=== PATIENT | male | born 1960 | race Caucasian/White ===

== ENCOUNTER → 2016-08-21 | Outpatient (CLI) | payer OTHER ==
[~2016-08-21] MED LIST: ALFU10TA11 PO; AMLO10TA82 PO; AMLO5TAB2 PO; ASP81CT; ASP81TEC PO; ASPI-875 PO; ASPI-983 PO; ATOR20TA49 PO; ATR20T PO; BP; CEPH500C PO; CLOP75TA PO; CLPD75T; HEART MED; HYDR-1231 PO; HYDR-3812 PO; HYDR-3876 PO; HYDR-757 PO; HYDR1TAB PO; ISOS30TA3 PO; ISOS30TA74 PO; LISI1TAB PO; LISI1TAB8 PO; METH4TAB PO; NAPR500T3 PO; NITR-68 PO; OMEG1CAP51 PO; ORPH100T PO; OXYC-465 PO; Oxycodone Hcl PO; PANT40SU PO; PANT40TA2 PO; PANT40TA3 PO; PNT40TEC PO; PRD20T PO; SCR1T1 PO; SUCR1TAB PO; SULF1TAB23 PO; TAMS0.4C98 PO; TELM80TA3 PO; TICA90TA PO; TRAM-21 PO; [UNRECOGNIZED DRUG - REMARK]
--- OUTSIDE RECORDS SUMMARY | 2016-08-21 09:10 | XMS REPORT | Continuity of Care Document ---
Author Author [facility] Organization [facility] Address Unknown Phone Unavailable Care Team Providers Care Brush Hand Name Role Phone JORDY JAIMES DO PCP Insurance Providers Payer Name Policy Number Subscriber Name Relationship Self Pay Pending Mery Apprv Daniel Meek Jr 18 Self / Same As Patient Advance Directives Directive Response Recorded Date/Time Advance Directives No 03/07/16 11:04pm Health Care Power of Ultrasound Technol No 03/07/16 11:04pm Organ Donor No 03/07/16 11:04pm Resuscitation Status Full Code 03/07/16 11:04pm Chief Complaint and Reason for Visit Chief Complaint CHEST PAIN, BACK PAIN Reason for Visit Ureterovesical junction (UVJ) obstruction Problems Active Problems Medical Problem Onset Date Status Chest pain Unknown Acute Dilated renal pelvis Unknown Acute Hypertension Unknown Acute Hypertensive urgency Unknown Acute Intractable abdominal pain Unknown Acute Left lower quadrant pain Unknown Acute Lower back pain Unknown Acute Lumbar radiculopathy Unknown Acute Muscle spasm of back Unknown Acute Nausea Unknown Acute Sacroiliitis Unknown Acute Sciatica of left side Unknown Acute Skin growth Unknown Acute Skin growth Unknown Acute Skin lesion Unknown Acute Ureterovesical junction (UVJ) obstruction Unknown Acute Medications Current Home Medications Medication Dose Units Route Directions Days/Qty Instructions Start Date Atorvastatin Calcium 20 Mg 20 Mg Oral Bedtime 06/13/15 Lisinopril/Hydrochlorothiazide 1 Each 1 Tab Oral Daily 06/13/15 Pantoprazole Sodium 40 Mg 40 Mg Oral Twice A Day 08/14/15 Alfuzosin Hcl 10 Mg 10 Mg Oral Daily@1800 30 08/15/15 Amlodipine Besylate 5 Mg 5 Mg Oral Bedtime 30 08/15/15 Hydrocodone/Acetaminophen 1 Each 1 Each Oral Every 4HRS as needed for Pain 30 03/08/16 Past Home Medications Medication Directions Ordered Status Clopidogrel Bisulfate 75 Mg Tablet, 09/25/07 Discontinued Aspirin 81 Mg Tablet, 09/25/07 Discontinued Sulfamethoxazole/Trimethoprim 1 Tab Tablet, 1 Tab Oral Twice A Day 09/15/11 Discontinued Acetaminophen/Hydrocodone Bitart 1 Each Tablet, 1 Each Oral Q4hr Prn Discontinued [Antacid Pill] , 10/27/12 Discontinued Aspirin 81 Mg Tablet.dr, 81 Mg Oral Daily 10/27/12 Discontinued Pantoprazole Sod 40 Mg Tab, 40 Mg Oral Twice A Day 10/29/12 Discontinued Hctz/Lisinopril (Zestoretic) 1 Each Tablet, 1 Tab Oral Daily 11/09/12 Discontinued Atorvastatin Calcium 20 Mg Tablet, 20 Mg Oral Bedtime 11/11/12 Discontinued Sucralfate 1 G Tablet, 1 G Oral Three Times A Day Before Meals 11/11/12 Discontinued Aspirin 81 Mg Tabec, 81 Mg Oral Daily 11/11/12 Discontinued Amlodipine Besylate (Norvasc 10 Mg) 10 Mg Tablet, 10 Mg Oral Daily 04/05/13 Discontinued [place]-3 Fatty Acids/Fish Oil 1 Each Capsule, 3 Each Oral Daily 04/06/13 Discontinued Clopidogrel Bisulfate 75 Mg Tablet, 1 Each Oral Daily 04/06/13 Discontinued Telmisartan 80 Mg Tablet, 1 Each Oral Daily 04/06/13 Discontinued Sucralfate 1 Gm Tab, 1 Gm Oral Three Times A Day 04/06/13 Discontinued Isosorbide Mononitrate 30 Mg Tab.sr.24h, 30 Mg Oral 05/03/13 Discontinued Clopidogrel Bisulfate 75 Mg Tablet, 1 Each Oral Daily 05/03/13 Discontinued Hydrocodone Bit/Acetaminophen 1 Tab Tablet, 1 Tab Oral Every 4HRS as needed for Pain 11/22/13 Discontinued Cephalexin Monohydrate (Keflex) 500 Mg Capsule, 2 Each Oral Twice A Day 05/01 Discontinued [Bp] , 10/03/14 Discontinued [Heart Med] , 10/03/14 Discontinued Methylprednisolone 4 Mg/Dose-Pack Tab.ds.pk, 0 Oral As Directed 10/03/14 Discontinued Orphenadrine Citrate 100 Mg Tablet.sa, 100 Mg Oral Twice A Day 10/03/14 Discontinued Tramadol Hcl 50 Mg Tablet, 50 Mg Oral Every 4HRS 10/03/14 Discontinued Pantoprazole Sodium 40 Mg Granpkt.dr, 40 Mg Oral Daily 04/03/15 Discontinued Prednisone 20 Mg Tab, 20 Mg Oral Daily 04/03/15 Discontinued Naproxen 500 Mg Tablet, 500 Mg Oral Twice A Day 04/03/15 Discontinued Hydrocodone/Acetaminophen 1 Each Tablet, 1 Each Oral Every 4HRS as needed for Pain 04/03/15 Discontinued Pantoprazole Sodium 40 Mg Tablet.dr, 40 Mg Oral Bedtime 06/13/15 Discontinued Aspirin 81 Mg Tablet.dr, 81 Mg Oral Daily 06/13/15 Discontinued Ticagrelor 90 Mg Tablet, 90 Mg Oral Twice A Day 06/14/15 Discontinued Pantoprazole Sodium 40 Mg Tablet.dr, 0 Mg Oral Twice Daily Before Meals 06/14 Discontinued Hydrocodone/Acetaminophen 1 Each Tablet, 1 Each Oral Every 4HRS as needed for Pain 07/31/15 Discontinued Ticagrelor 90 Mg Tablet, 90 Mg Oral Twice A Day 08/14/15 Discontinued Isosorbide Mononitrate (Imdur) 30 Mg Tab.er.24h, 30 Mg Oral Daily 08/14/15 Discontinued [Oxycodone Hcl] 5 Mg Tab, 5 Mg Oral Every 4HRS as needed for Pain 08/15/15 Discontinued Social History Social History Problem Response Recorded Date/Time Alcohol Use Denies Use 08/14/2015 1:14pm Recreational Drug Use No 08/14/2015 1:14pm Recent Foreign Travel No 05/01/2014 12:27am Recent Infectious Disease Exposure No 05/01/2014 12:27am Hospitalization with Isolation Denies 03/13/2016 3:44pm Smoking Status Never a Smoker 03/07/2016 11:00pm Do you dip or chew tobacco? Yes 08/14/2015 1:10pm Type Used Smokeless Tobacco 03/13/2016 3:45pm Recent Hopitalizations Y KIDNEY STONES, AND STENT PLACED 03/07/2016 11:07pm Hospitalization with Isolation Denies 03/13/2016 3:44pm Query Response Start Date Stop Date Smoking Status Never a Smoker Hospital Discharge Instructions Patient Instructions Physician Instructions Follow Up/Plan Appointment with Dr Sanchez's office in 2-[address] Reddy office CARDIAC CATH DISCHARGE INSTRUCTIONS *Hold Metformin for 48 hours post heart cath. ACTIVITY * Go Home directly and rest. * Limit activity of the leg (or wrist if it was used) for 7 days including aerobics, swimming, jogging, bicycling, etc. * Restrict stair-climbing for 7 days if possible, if not, climb up with your non-cath leg, then bring together on the same step. * Avoid lifting, pushing, pulling or excessive movement of the affected extremity for 7 days. * Customary sexual activity may be resumed after 2 days-use caution not to use a position that strains or causes pain to the affected extremity. * No driving for 24 hours. * NO SMOKING. * Avoid straining for bowel movements for 7 days. * Gentle walking on level ground is allowed. * Returning to work will depend on the type of procedure and the results. Your doctor will discuss this with you. CALL YOUR DOCTOR FOR ANY OF THE FOLLOWING: *If bleeding from the puncture site occurs- Apply gentle pressure to site with clean cloth and call your doctor or EMS. * If a knot or lump forms under the skin, increases in size, or causes pain. * If bruising appears to be worsening or moving further down your leg instead of disappearing. * Temperature above 101 F. CARE OF YOUR GROIN INCISION; * Bruising or purple discoloration of the skin near the puncture site is common. * You may shower only, no bathtub bathing for 5 days. Be careful to avoid slipping as your leg may feel stiff. * If a closure device was used on your femoral artery, please see the attached guide regarding care of the device and your leg. * REMOVE the dressing from your groin the next day after your procedure in the shower. CARE OF YOUR WRIST INCISION; * Bruising or purple discoloration of the skin near the puncture site is common. * You may shower. * DO NOT submerge wrist. * Remove dressing in 24 hours. New, Converted, or Re-newed RX: RX on Chart Plan Office this thursday at 1pm and KUB prior to it Strain all urines and save any stone passed and bring to office Increase oral fluids Diet and Activity as tolerated. If questions or concerns contact your physician Or seek help at emergency department. Plan of Care Discharge Date 03/08/16 3:15pm Disposition IP-HIM TO CODE Instructions/Education Provided CARDIAC CATH DISCHARGE INSTRUC Forms Provided Follow-Up Fax Prescriptions See Medication Section Care Plan and Goals See Discharge Instructions Section Functional Status Query Response Date Recorded Patient Orientation Person Place Time Situation Normal For Age March 13, 2016 3:44pm Comprehension Ability Understands Concepts March 08, 2016 7:56am Allergies, Adverse Reactions, Alerts Allergen Type Severity Reaction Status Last Updated Ibuprofen Allergy Unknown Active 09/25/07 Immunizations No immunization records. Vital Signs Acute Vital Signs Vital Response Date/Time Temperature (Fahrenheit) 97.7 degrees F (97.6 - 99.5) 03/08/2016 3:15pm Temperature (Calculated Celsius) 36.86174 degrees C (36.4 - 37.5) 03/08/2016 11:00am Temperature Source Tympanic 03/08/2016 3:15pm Pulse Rate (adult) 58 bpm (60 - 90) 03/08/2016 3:15pm Respiratory Rate 11 bpm (12 - 24) 03/08/2016 3:15pm O2 Sat by Pulse Oximetry 96 % (88 - 100) 03/08/2016 3:15pm Blood Pressure 138/99 mm Hg 03/08/2016 3:15pm Blood Pressure Mean 112 mm Hg 03/08/2016 2:15pm Pain Numeric Pain Scale 4 03/08/2016 3:15pm Height (Feet) 5 feet 03/07/2016 11:02pm Height (Inches) 9.00 inches 03/07/2016 11:02pm Height (Calculated Centimeters) 175.922827 cm 03/07/2016 11:02pm Weight (Pounds) 269 pounds 03/08/2016 6:00am Weight (Ounces) 8.0 oz 03/08/2016 6:00am Weight (Calculated Grams) 809872.145 gm 03/08/2016 6:00am Weight (Calculated Kilograms) 122.758593 kilograms 03/08/2016 6:00am Calculated BMI 39.8 03/07/2016 11:02pm Capillary Refill Capillary Refill Less Than 3 Seconds 03/08/2016 3:00pm Capillary Refill Capillary Refill Less Than 3 Seconds 03/08/2016 3:00pm Results Laboratory Results Test Name Result Units Flags Reference Collection Date/Time Result Date/ Time Comments White Blood Count 8.9 10^3/uL 4.3-11.0 03/08/2016 4:03/08/2016 4: 41am Red Blood Count 4.43 10^6/uL 4.35-5.85 03/08/2016 4:03/08/2016 4: 41am Hemoglobin 13.7 G/DL 13.3-17.7 03/08/2016 4:03/08/2016 4:41am Hematocrit 42 % 40-54 03/08/2016 4:03/08/2016 4:41am Mean Corpuscular Volume 96 FL 80-99 03/08/2016 4:03/08/2016 4: 41am Mean Corpuscular Hemoglobin 31 PG 25-34 03/08/2016 4:03/08/2016 4: 41am Mean Corpuscular Hemoglobin Concent 32 G/DL 32-36 03/08/2016 4: 4:41am Red Cell Distribution Width 13.6 % 10.0-14.5 03/08/2016 4:2015 4:41am Platelet Count 174 10^3/uL 130-400 03/08/2016 4:03/08/2016 4:41am Mean Platelet Volume 11.9 FL H 7.4-10.4 03/08/2016 4:03/08/2016 4: 41am Neutrophils (%) (Auto) 61 % 42-75 03/08/2016 4:03/08/2016 4:41am Lymphocytes (%) (Auto) 29 % 12-44 03/08/2016 4:03/08/2016 4:41am Monocytes (%) (Auto) 9 % 0-12 03/08/2016 4:03/08/2016 4:41am Eosinophils (%) (Auto) 1 % 0-10 03/08/2016 4:03/08/2016 4:41am Basophils (%) (Auto) 0 % 0-10 03/08/2016 4:03/08/2016 4:41am Neutrophils # (Auto) 5.4 X 10^3 1.8-7.8 03/08/2016 4:09am 03/08/2016 4: 41am Lymphocytes # (Auto) 2.6 X 10^3 1.0-4.0 03/08/2016 4:09am 03/08/2016 4: 41am Monocytes # (Auto) 0.8 X 10^3 0.0-1.0 03/08/2016 4:09am 03/08/2016 4: 41am Eosinophils # (Auto) 0.1 10^3/uL 0.0-0.3 03/08/2016 4:09am 03/08/2016 4 :41am Basophils # (Auto) 0.0 10^3/uL 0.0-0.1 03/08/2016 4:09am 03/08/2016 4: 41am Prothrombin Time 12.4 SEC 12.2-14.7 03/07/2016 7:50pm 03/07/2016 8: 27pm INR Comment 0.9 0.8-1.4 03/07/2016 7:50pm 03/07/2016 8:27pm INTERPRETIVE DATA SUGGESTED THERAPEUTIC RANGE FOR INR'S: VENOUS THROMBOSIS, PULMONARY EMBOLISM, OR PREVENTION OF SYSTEMIC EMBOLISM (EG. IN ATRIAL FIBRILLATION): 2.0 - 3.0 MECHANICAL PROSTHETIC HEART VALVES: 2.5 - 3.5* *NOTE: INR'S UP TO 4.5 MAY BE NECESSARY IN SELECTED GROUPS OF HIGH RISK PATIENTS. [employer] [employer]LE[employer] OF CHEST PHYSICIANS CONSENSUS CONFERENCE ON ANTITHROMBOTIC THERAPY (2000). Activated Partial Thromboplast Time 26 SEC 24-35 03/07/2016 7:50pm 06/2016 8:27pm D-Dimer 0.56 UG/ML H 0.00-0.49 03/07/2016 7:50pm 03/07/2016 8:28pm Urine Color YELLOW 03/07/2016 11:30pm 03/07/2016 11:56pm Urine Clarity CLEAR 03/07/2016 11:30pm 03/07/2016 11:56pm Urine pH 5 5-9 03/07/2016 11:30pm 03/07/2016 11:56pm Urine Specific [place] 1.025 * 1.016-1.022 03/07/2016 11:30pm 2015 11:56pm Urine Protein 1+ * NEGATIVE 03/07/2016 11:30pm 03/07/2016 11:56pm Urine Glucose (UA) NEGATIVE NEGATIVE 03/07/2016 11:30pm 03/07/2016 11 :56pm Urine RBC (Auto) 2+ * NEGATIVE 03/07/2016 11:30pm 03/07/2016 11:56pm Urine Ketones NEGATIVE NEGATIVE 03/07/2016 11:30pm 03/07/2016 11: 56pm Urine Nitrite NEGATIVE NEGATIVE 03/07/2016 11:30pm 03/07/2016 11: 56pm Urine Bilirubin NEGATIVE NEGATIVE 03/07/2016 11:30pm 03/07/2016 11: 56pm Urine Urobilinogen NORMAL MG/DL NORMAL 03/07/2016 11:30pm 03/07/2016 11 :56pm Urine Leukocyte Esterase NEGATIVE NEGATIVE 03/07/2016 11:30pm 2015 11:56pm Urine RBC 2-5 /HPF * 03/07/2016 11:30pm 03/07/2016 11:56pm Urine WBC NONE /HPF 03/07/2016 11:30pm 03/07/2016 11:56pm Urine Bacteria NEGATIVE /HPF 03/07/2016 11:30pm 03/07/2016 11:56pm Urine Squamous Epithelial Cells 2-5 /HPF 03/07/2016 11:30pm 2015 11:56pm Urine Crystals PRESENT /LPF * 03/07/2016 11:30pm 03/07/2016 11:56pm Urine Calcium Oxalate Crystals LARGE /LPF * 03/07/2016 11:30pm 2015 11:56pm Urine Casts NONE /LPF 03/07/2016 11:30pm 03/07/2016 11:56pm Urine Mucus NEGATIVE /LPF 03/07/2016 11:30pm 03/07/2016 11:56pm Urine Culture Indicated NO 03/07/2016 11:30pm 03/07/2016 11:56pm Sodium Level 143 MMOL/L 135-145 03/08/2016 4:09am 03/08/2016 4:59am Potassium Level 4.3 MMOL/L 3.6-5.0 03/08/2016 4:09am 03/08/2016 4:59am Chloride Level 107 MMOL/L 98-107 03/08/2016 4:09am 03/08/2016 4:59am Carbon Dioxide Level 25 MMOL/L 21-32 03/08/2016 4:03/08/2016 4: 59am Anion Gap 11 MMOL/L 5-14 03/08/2016 4:03/08/2016 4:59am Blood Urea Nitrogen 18 MG/DL -18 03/08/2016 4:03/08/2016 4:59am Creatinine 1.73 MG/DL H 0.60-1.30 03/08/2016 4:03/08/2016 4:59am BUN/Creatinine Ratio 10 03/08/2016 4:03/08/2016 4:59am Estimat Glomerular Filtration Rate 42 03/08/2016 4:03/08/2016 4:59am GFR INTERPRETIVE DATA UNITS FOR ESTIMATED GFR (eGFR): mL/min/1.73 M2 REFERENCE RANGE FOR ESTIMATED GFR (eGFR) eGFR NORMAL eGFR >60 MODERATELY DECREASED eGFR 30-59 SEVERLY DECREASED eGFR 15-29 KIDNEY FAILURE <15 (OR DIALYSIS) Glucose Level 109 MG/DL H 70-105 03/08/2016 4:03/08/2016 4:59am Calcium Level 8.7 MG/DL 8.5-10.1 03/08/2016 4:03/08/2016 4:59am Magnesium Level 2.1 MG/DL 1.8-2.4 03/07/2016 7:50pm 03/07/2016 8:25pm Total Bilirubin 1.4 MG/DL H 0.1-1.0 03/08/2016 4:03/08/2016 4:59am Alkaline Phosphatase 61 U/L 40-136 03/08/2016 4:03/08/2016 4:59am Aspartate Amino Transf (AST/SGOT) 29 U/L 5-34 03/08/2016 4:2015 4:59am Alanine Aminotransferase (ALT/SGPT) 44 U/L 0-55 03/08/2016 4:03/08 4:59am Troponin I < 0.30 NG/ML <0.30 03/08/2016 4:03/08/2016 7:56am Troponin I < 0.30 NG/ML <0.30 03/07/2016 7:50pm 03/07/2016 8:35pm Myoglobin 43.8 NG/ML 10.0-92.0 03/07/2016 7:50pm 03/07/2016 8:35pm Total Protein 6.8 G/DL 6.4-8.2 03/08/2016 4:09am 03/08/2016 4:59am Albumin 3.8 G/DL 3.2-4.5 03/08/2016 4:09am 03/08/2016 4:59am Triglycerides Level 119 MG/DL <150 03/08/2016 4:09am 03/08/2016 6:14am Cholesterol Level 226 MG/DL H < 200 03/08/2016 4:09am 03/08/2016 6:14am HDL Cholesterol 40 MG/DL 40-60 03/08/2016 4:09am 03/08/2016 6:14am LDL Cholesterol Direct 176 MG/DL H 1-129 03/08/2016 4:09am 03/08/2016 6: 14am VLDL Cholesterol 24 MG/DL 5-40 03/08/2016 4:09am 03/08/2016 6:14am Amylase Level 51 U/L 25-125 03/08/2016 4:09am 03/08/2016 7:49am Lipase 22 U/L 8-78 03/08/2016 4:09am 03/08/2016 7:49am Procedures Procedure Status Date Provider(s) Tracing only of electrocardiogram Completed 03/07/16 CLAUDIA STRONG MD Encounters Encounter Location Arrival/Admit Date Discharge/Depart Date Attending Provider Admitted Inpatient [facility] 03/07/16 10:32pm PALLAVI FRASER DO Recent Diagnosis Ureterovesical junction (UVJ) obstruction
[2016-08-21 09:39] LABS: BILIRUBIN,DIRECT 0.3 MG/DL (0.0-0.3); BILIRUBIN,INDIRECT 0.6 MG/DL; BILIRUBIN,TOTAL 0.9 MG/DL (0.1-1.0); TOTAL PROTEIN 7.5 G/DL (6.4-8.2)
--- NOTE | 2016-08-21 13:01 | Diagnostic Imaging Report ---
Abdominal ultrasound. INDICATION: Hypertension. There are no previous abdominal ultrasound examinations available for comparison. The CT abdomen/pelvis exam of 03/08/2016 did note a 7 mm obstructive calculus involving the left ureteropelvic junction resulting in moderate left pyelocaliectasis. There are also other smaller nonobstructive calculi within both kidneys. On this exam there is still hydronephrosis of the left kidney. The previously noted obstructive calculus cannot be identified. In reviewing the coronal images of the previous CT exam, there was a suggestion of a UPJ deformity on the left and this may account for the dilatation of the left collecting system. However, if there is clinical concern regarding acute obstruction, then a repeat CT exam would be recommended. There is no sign of a solid mass involving the left kidney. There is no shadowing to suggest nephrolithiasis either. Along the inferomedial aspect of the right kidney, there is a 3.1 x 3.2 x 1.8 cm avascular hypoechoic area. In reviewing the previous CT exam, there was no discrete solid or cystic mass in this area. This finding is of uncertain etiology but the possibility that there is a solid mass in this area should be considered. If possible, a followup CT exam with intravenous contrast would be recommended for additional study. If the patient cannot tolerate intravenous contrast, then MRI would be recommended for additional study. There is no sign of hydronephrosis of the right kidney. The renal cortex is normal in thickness and echogenicity. Spectral and color flow imaging of the renal arteries was performed. The proximal portions of the renal arteries were not well visualized. The blood flow in the remainder of the vessels failed to show any sign of a hemodynamically significant stenosis. The aorta could not be identified due to overlying bowel gas. The kidneys are normal in size with the right kidney measuring 11 x 6 x 6.3 cm and left kidney estimated to be 10 x 6.3 x 5.7 cm. The bladder was not imaged during the course of this exam. IMPRESSION: 1. There is persistent dilatation of the left renal pelvis. 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 However, if there is clinical concern regarding acute obstruction of the left collecting system, then CT would be recommended for further study. 2. The hypoechoic area along the inferomedial aspect of the right kidney is of uncertain etiology. Considerations and recommendations as above. 3. The renal arteries, where visualized, show no sign of a hemodynamically significant stenosis. 4. The bladder was not imaged during the course of this exam. Dictated by: Dictated on workstation # [id number]
== END ==
LOC: RAD 09:06
PROVIDERS: ATTEND Internal Medicine Cardiovascular Disease
DX: R93.49 Abnormal radiologic findings on diagnostic imaging of other urinary organs (principal); I25.10 Atherosclerotic heart disease of native coronary artery without angina pectoris; I10 Essential (primary) hypertension; E78.2 Mixed hyperlipidemia; R07.89 Other chest pain
CPT/HCPCS: 36415; 80061; 80076; 93975

== ENCOUNTER 2016-09-01 18:56 | Observation (INO) | payer OTHER ==
[2016-09-01] VITALS (7 sets, daily range): BP systolic 146–170; BP diastolic 92–107
[~2016-09-01] VITALS: Ht 175.3 cm; Wt 123.4 kg
[~2016-09-01 18:56] MED LIST changes: -CATHETER FLUSH 10 ML SYR IV PRN; -IOHEXOL 350 MG/ML 100 ML (OMNIPAQUE 350) VIAL IV ONE; -NS 100 ML (IVPB) BAG IV ONE; -OXYC-465 PO
--- OUTSIDE RECORDS SUMMARY | 2016-09-01 19:02 | XMS REPORT | Continuity of Care Document ---
Author Author [facility] Organization [facility] Address Unknown Phone Unavailable Care Team Providers Care Golf Stud Riveter Name Role Phone JORDY JAIMES DO PCP Insurance Providers Payer Name Policy Number Subscriber Name Relationship Self Pay Pending Mery Apprv Daniel Meek Jr 18 Self / Same As Patient Advance Directives Directive Response Recorded Date/Time Advance Directives No 03/07/16 11:04pm Health Care Power of Central Office Repairer Supervisor No 03/07/16 11:04pm Organ Donor No 03/07/16 [...] Tablet, 10 Mg Oral Daily 04/05/13 Discontinued [place]-3 Fatty Acids/Fish Oil 1 Each Capsule, 3 [...] - 99.5) 03/08/2016 3:15pm Temperature (Calculated Celsius) 36.64292 degrees C (36.4 - 37.5) 03/08/2016 11:00am [...] 9.00 inches 03/07/2016 11:02pm Height (Calculated Centimeters) 175.042290 cm 03/07/2016 11:02pm Weight (Pounds) 269 pounds 03/08/2016 6:00am Weight (Ounces) 8.0 oz 03/08/2016 6:00am Weight (Calculated Grams) 832019.145 gm 03/08/2016 6:00am Weight (Calculated Kilograms) 122.574360 kilograms 03/08/2016 6:00am Calculated BMI 39.8 03/07/2016 [...] SELECTED GROUPS OF HIGH RISK PATIENTS. [employer] [place] [employer] OF CHEST PHYSICIANS CONSENSUS CONFERENCE ON ANTITHROMBOTIC THERAPY (2000). Activated Partial Thromboplast Time 26 SEC 24-35 03/07/2016 7:50pm 06/2016 8:27pm D-Dimer 0.56 UG/ML H 0.00-0.49 03/07/2016 7:50pm 03/07/2016 8:28pm Urine Color YELLOW 03/07/2016 11:30pm 03/07/2016 11:56pm Urine Clarity CLEAR 03/07/2016 11:30pm 03/07/2016 11:56pm Urine pH 5 5-9 03/07/2016 11:30pm 03/07/2016 11:56pm Urine Specific [place] 1.025 * 1.016-1.022 03/07/2016 11:30pm 2015 11:56pm [...] Discharge/Depart Date Attending Provider Admitted Inpatient [facility] 03/07/16 10:32pm PALLAVI FRASER DO Recent Diagnosis Ureterovesical junction (UVJ) obstruction
[2016-09-01] MEDS ORDERED: ASPIRIN 81 MG CHEW (CHILDREN'S ASA) PO ONE (19:15)
[2016-09-01] MEDS ORDERED: RX-NITROGLYCERIN 0.4 MG TAB BTL 25'S SL ONE (19:15)
--- NOTE | 2016-09-01 19:20 | ED Chest Pain ---
General Stated Complaint: CHEST PAIN/LOWER BACK PAIN/KIDNEY STONE Source: patient Exam Limitations: no limitations History of Present Illness Time seen by provider: 19:18 Initial Comments To ER with pain to the left lower anterior chest. This began 3 hours ago he states. He does have associated shortness of breath. He also has a nonproductive cough which worsens the pain. He denies diaphoresis or nausea, palpitations or lightheadedness. Pain does not radiate. States that the chest is tender to palpation. He's had a history of a left renal pelvis dilation secondary to left kidney stone. He had a CT scan done today which showed persistent left ureteral stone he states. He describes the chest pain as sharp and stabbing but "also kind of tight" Timing/Duration: 1-3 hours Severity/Quality: moderate Radiation: no radiation Activities at Onset: none ASA po YARN DYER: No NTG SL YARN DYER: No Associated Symptoms: No heartburn, No nausea/vomiting Allergies and Home Medications Allergies Coded Allergies: ibuprofen (Verified Allergy, Unknown, 09/25/07) Home Medications Alfuzosin HCl 10 Mg Tab.er.24h #30 10 MG PO DAILY@1800 Prescribed by: JORDY GREER on 08/15/15 1709 Amlodipine Besylate 5 Mg Tablet #30 5 MG PO HS Prescribed by: JORDY GREER on 08/15/15 1709 Atorvastatin Calcium 20 Mg Tablet 20 MG PO HS (Reported) Hydrocodone/Acetaminophen 1 Each Tablet #30 1 EACH PO Q4H PRN PRN PAIN Prescribed by: JOSE ANTONIO WOLFE on 03/08/16 1443 Hydrocodone/Acetaminophen 1 Each Tablet #30 1-2 TAB PO Q4H PRN PRN PAIN Prescribed by: JASMYN MCMULLEN on 03/25/16 1007 Lisinopril/Hydrochlorothiazide 1 Each Tablet 1 TAB PO DAILY (Reported) Nitrofurantoin Macrocrystal 100 Mg Capsule #14 100 MG PO BID WITH MEALS Prescribed by: JASMYN MCMULLEN on 03/25/16 1007 Pantoprazole Sodium 40 Mg Tablet.dr 40 MG PO BID (Reported) Tamsulosin HCl 0.4 Mg Cap #14 0.4 MG PO DAILY Prescribed by: JASMYN MCMULLEN on 03/25/16 1007 Review of Systems Constitutional: see HPI EENTM: No Symptoms Reported Respiratory: See HPI Cough Shortness of AirDenies SOA With Exertion Cardiovascular: See HPI Chest PainDenies Edema, Denies Irregular Heart Rate, Denies Lightheadedness, Denies Palpitations, Denies Syncope Gastrointestinal: See HPI Genitourinary: No Symptoms Reported Musculoskeletal: no symptoms reported Skin: no symptoms reported Psychiatric/Neurological: No Symptoms Reported Endocrine: No Symptoms Reported Hematologic/Lymphatic: No Symptoms Reported Past Enpspix-Twctrp-Mxwhjk Hx Patient Social History Type Used: Smokeless Tobacco Recent Foreign Travel: No Contact w/Someone Who Travel: No Recent Hopitalizations: Yes (KIDNEY STONES, AND STENT PLACED) Immunizations Up To Date Tetanus Booster (TDap): Less than 5yrs Date of Influenza Vaccine: Jul 27, 2014 Seasonal Allergies Seasonal Allergies: Yes Surgeries HX Surgeries: Yes (LITHOTRIPSY, 2-CARDIAC STENTS PLACED) Surgeries: Cardiac, Coronary Stent, Renal Respiratory Hx Respiratory Disorders: No Cardiovascular Hx Cardiac Disorders: Yes (STENT PLACED IN 2005, ANGIOPLASTY IN 2012) Cardiac Disorders: Coronary Artery Disease, Heart Attack, High Cholesterol, Hypertension Neurological Hx Neurological Disorders: Yes Reproductive System Hx Reproductive Disorders: No Genitourinary Hx Genitourinary Disorders: Yes Genitourinary Disorders: Kidney Stones Gastrointestinal Hx Gastrointestinal Disorders: Yes (BLEEDING ULCER) Gastrointestinal Disorders: Gastroesophageal Reflux, Gastrointestinal Bleed, Ulcer Musculoskeletal Hx Musculoskeletal Disorders: Yes (3 BULGING DISKS) Musculoskeletal Disorders: Chronic Back Pain Endocrine Hx Endocrine Disorders: No HEENT HX ENT Disorders: No Cancer Hx Cancer: No Psychosocial Hx Psychiatric Problems: No Integumentary HX Skin/Integumentary Disorder: No Blood Transfusions Hx Blood Disorders: No Family Medical History Significant Family History: No Pertinent Family Hx Family Medial History: FH: CHF (congestive heart failure) 19 MOTHER Physical Exam Vital Signs Vital Sign - Last 12Hours 09/01/16 19:02 Temp 97.1 Pulse 60 Resp 20 B/P 177/114 Pulse Ox 92 O2 Delivery Room Air Capillary Refill : General Appearance: No Apparent Distress WD/WN HEENT: PERRL/EOMI TMs Normal Neck: Full Range of Motion Normal Inspection Respiratory: No Accessory Muscle Use No Respiratory Distress Other (left lower anterior chest wall tender to palpation) Cardiovascular: Regular Rate, Rhythm Normal Peripheral Pulses Gastrointestinal: Normal Bowel Sounds Non Tender Soft Extremity: Normal Capillary Refill Normal Inspection Neurologic/Psychiatric: Alert Oriented x3 Skin: Warm/Dry Progress/Results/Core Measures Results/Orders Lab Results Laboratory Tests Test 09/01/16 19:10 Range/Units Activated Partial Thromboplast Time 27 24-35 SEC Alanine Aminotransferase (ALT/SGPT) 21 0-55 U/L Albumin 3.7 3.2-4.5 G/DL Alkaline Phosphatase 66 40-136 U/L Anion Gap 9 5-14 MMOL/L Aspartate Amino Transf (AST/SGOT) 19 5-34 U/L BUN/Creatinine Ratio 9 Basophils # (Auto) 0.0 0.0-0.1 10^3/uL Basophils (%) (Auto) 1 0-10 % Blood Urea Nitrogen 13 7-18 MG/DL Calcium Level 8.7 8.5-10.1 MG/DL Carbon Dioxide Level 23 21-32 MMOL/L Chloride Level 107 98-107 MMOL/L Creatinine 1.51 H 0.60-1.30 MG/DL Eosinophils # (Auto) 0.4 H 0.0-0.3 10^3/uL Eosinophils (%) (Auto) 6 0-10 % Estimat Glomerular Filtration Rate 49 Glucose Level 95 70-105 MG/DL Hematocrit 43 40-54 % Hemoglobin 13.8 13.3-17.7 G/DL INR Comment 1.0 0.8-1.4 Lymphocytes # (Auto) 2.3 1.0-4.0 X 10^3 Lymphocytes (%) (Auto) 34 12-44 % Magnesium Level 2.1 1.8-2.4 MG/DL Mean Corpuscular Hemoglobin 31 25-34 PG Mean Corpuscular Hemoglobin Concent 33 32-36 G/DL Mean Corpuscular Volume 94 80-99 FL Mean Platelet Volume 11.5 H 7.4-10.4 FL Monocytes # (Auto) 0.8 0.0-1.0 X 10^3 Monocytes (%) (Auto) 12 0-12 % Myoglobin 61.3 10.0-92.0 NG/ML Neutrophils # (Auto) 3.3 1.8-7.8 X 10^3 Neutrophils (%) (Auto) 48 42-75 % Platelet Count 185 130-400 10^3/uL Potassium Level 3.8 3.6-5.0 MMOL/L Prothrombin Time 12.5 12.2-14.7 SEC Red Blood Count 4.52 4.35-5.85 10^6/uL Red Cell Distribution Width 12.8 10.0-14.5 % Sodium Level 139 135-145 MMOL/L Total Bilirubin 0.7 0.1-1.0 MG/DL Total Protein 7.0 6.4-8.2 G/DL Troponin I < 0.30 <0.30 NG/ML White Blood Count 6.7 4.3-11.0 10^3/uL My Orders Orders-CASSIE PHAM [employer] Cbc With Automated Diff (09/01/16 19:11) Magnesium (09/01/16 19:11) Chest 1 View, Ap/Pa Only (09/01/16 19:11) Ekg Tracing (09/01/16 19:11) Cardiac Profile 1 (09/01/16 19:11) Comprehensive Metabolic Panel (09/01/16 19:11) Myoglobin Serum (09/01/16 19:11) Protime With Inr (09/01/16 19:11) Partial Thromboplastin Time (09/01/16 19:11) O2 (09/01/16 19:11) Monitor-Rhythm Ecg Trace Only (09/01/16 19:11) Lipid Panel (09/02/16 06:00) Aspirin Chewable Tablet (Baby Aspirin Ch (09/01/16 19:15) Rx-Nitroglycerin Sl Tabs (Rx-Nitrostat S (09/01/16 19:15) Saline Lock/Iv-Start (09/01/16 19:11) Ketorolac Injection (Toradol Injection) (09/01/16 20:00) Abdomen/Kub 1view (09/01/16 19:57) Ketorolac Injection (Toradol Injection) (09/01/16 20:00) Ketorolac Injection (Toradol Injection) (09/01/16 19:59) Medications Given in ED Current Medications Medications Dose Ordered Sig/Letty Route Start Time Stop Time Status Last Admin Dose Admin Aspirin 324 mg ONCE ONCE PO 09/01/16 19:15 09/01/16 19:16 DC 09/01/16 19:16 324 MG Ketorolac Tromethamine 15 mg ONCE ONCE IVP 09/01/16 20:00 09/01/16 20:01 DC 09/01/16 20:01 15 MG Nitroglycerin 0.4 mg UD ONCE SL 09/01/16 19:15 09/01/16 19:16 DC 09/01/16 19:16 0.4 MG Vital Signs/I&O Vital Sign - Last 12Hours 09/01/16 19:02 Temp 97.1 Pulse 60 Resp 20 B/P 177/114 Pulse Ox 92 O2 Delivery Room Air Diagnostic Imaging Diagonstic Imaging: Xray Comments NAME: DANIEL MEEK JR [facility] REC#: [id number] PT STATUS: REG ER : 1960 PHYSICIAN: CASSIE PHAM APRN ADMIT DATE: 09/01/16/ER Draft Date of Exam:09/01/16 CHEST 1 VIEW, AP/PA ONLY INDICATION: Chest pain FINDINGS: Frontal view of the chest demonstrates the lungs to be clear. The heart, mediastinum and pulmonary vascularity are normal. IMPRESSION: Negative chest. Dictated on workstation # [id number] Dict: 09/01/161932 Trans: 09/01/161934 [facility] [id number] Interpreted by: FARIDEH PLUMMER MD Electronically signed by: Departure Communication Time/Spoke to Admitting Phy: 20:[address] Greer. We will admit her and consult cardiology and urology Time/Spoke to Consulting Physi: 20:02 Communication/Consulting Discussed with Dr. Herrera who is on-call for Dr. Sanchez. Dr. Sanchez will see the patient tomorrow morning, Javier will be available for any emergencies overnight. Family Conversation I did call Dr. Conteh. No answer at this time so voicemail was left notifying of consult. Impression Impression: Primary Impression: Chest pain Additional Impressions: Coronary artery disease Calculus of proximal left ureter Disposition: ADMITTED INPATIENT Condition: Stable Decision to Admit Reason: Admit from ER (General) Decision to Admit/Date: Sep 01, 2016 Time/Decision to Admit Time: 20:07 Departure-Patient Inst. Referrals: JORDY GREER DO (PCP/Family) Primary Care Physician CASSIE PHAM APRN Sep 01, 2016 19:20
[2016-09-01 19:33] LABS: BASOPHILS % (AUTO) 1 % (0-10); EOSINOPHILS # (AUTO) 0.4 10^3/uL (0.0-0.3); EOSINOPHILS % (AUTO) 6 % (0-10); LYMPHOCYTES # (AUTO) 2.3 X 10^3 (1.0-4.0); LYMPHOCYTES % (AUTO) 34 % (12-44); MEAN CORPUSCULAR HEMOGLOBIN 31 PG (25-34); MEAN CORPUSCULAR HGB CONC 33 G/DL (32-36); MEAN CORPUSCULAR VOLUME 94 FL (80-99); MEAN PLATELET VOLUME 11.5 FL (7.4-10.4); MONOCYTES # (AUTO) 0.8 X 10^3 (0.0-1.0); MONOCYTES % (AUTO) 12 % (0-12); NEUTROPHILS # (AUTO) 3.3 X 10^3 (1.8-7.8); NEUTROPHILS % (AUTO) 48 % (42-75); PLATELET COUNT 185 10^3/uL (130-400); RED BLOOD COUNT 4.52 10^6/uL (4.35-5.85); RED CELL DISTRIBUTION WIDTH 12.8 % (10.0-14.5); WHITE BLOOD COUNT 6.7 10^3/uL (4.3-11.0)
--- NOTE | 2016-09-01 19:36 | Diagnostic Imaging Report ---
INDICATION: Chest pain FINDINGS: Frontal view of the chest demonstrates the lungs to be clear. The heart, mediastinum and pulmonary vascularity are normal. IMPRESSION: Negative chest. Dictated by: Dictated on workstation # [id number]
[2016-09-01 19:38] LABS: ALANINE AMINOTRANSFERASE 21 U/L (0-55); ALBUMIN 3.7 G/DL (3.2-4.5); ANION GAP 9 MMOL/L (5-14); ASPARTATE AMINO TRANSFERASE 19 U/L (5-34); BILIRUBIN,TOTAL 0.7 MG/DL (0.1-1.0); BLOOD UREA NITROGEN 13 MG/DL (7-18); BUN/CREATININE RATIO 9; CALCIUM 8.7 MG/DL (8.5-10.1); CARBON DIOXIDE 23 MMOL/L (21-32); CHLORIDE 107 MMOL/L (98-107); CREATININE SERUM 1.51 MG/DL (0.60-1.30); GFR ESTIMATED 49; GLUCOSE 95 MG/DL (70-105); MAGNESIUM 2.1 MG/DL (1.8-2.4); POTASSIUM 3.8 MMOL/L (3.6-5.0); SODIUM 139 MMOL/L (135-145)
[2016-09-01 19:39] LABS: PROTHROMBIN TIME PATIENT 12.5 SEC (12.2-14.7)
[2016-09-01 19:45] LABS: MYOGLOBIN SERUM 61.3 NG/ML (10.0-92.0)
[2016-09-01] MEDS ORDERED: KETOROLAC 30 MG/ML VIAL ONE (19:59)
[2016-09-01] MEDS ORDERED: KETOROLAC 30 MG/ML VIAL IVP ONE (20:00)
[2016-09-01] MEDS ORDERED: KETOROLAC 15 MG/ML VIAL IVP ONE (20:00)
--- NOTE | 2016-09-01 20:47 | Diagnostic Imaging Report ---
INDICATION: Back pain, left-sided kidney stones. FINDINGS: Supine view of the abdomen is compared to a CT scan from earlier today. A 6 mm calcification is again seen in the region of the proximal left ureter. There are a couple of adjacent smaller calcifications. IMPRESSION: Calcifications are again seen in the proximal left ureter. Dictated by: Dictated on workstation # [id number]
[2016-09-01] MEDS ORDERED: CATHETER FLUSH 10 ML SYR IV PRN (21:30)
[2016-09-01] MEDS ORDERED: NITROGLYCERIN SUBLINGUAL 0.4 MG TAB (NITROSTAT) SL PRN (21:30)
[2016-09-01] MEDS ORDERED: morphine INJ 4 MG/ML 1 ML (VIAL/SYRINGE) IV PRN (21:30)
[2016-09-01] MEDS ORDERED: ONDANSETRON 4 MG/2 ML (SDV) Z0FRAN IV PRN (21:30)
[2016-09-01] MEDS: CATHETER FLUSH 10 ML SYR IV SCH (21:34)
[2016-09-01] MEDS: NS IV 1000 ML 1,000 ML IV SCH (21:34)
[2016-09-01] MEDS: fentaNYL INJECTION 100 MCG/2 ML AMP IVP PRN (21:35)
[2016-09-02] VITALS (8 sets, daily range): BP systolic 165–184; BP diastolic 91–104
[2016-09-02] MEDS: fentaNYL INJECTION 100 MCG/2 ML AMP IVP PRN ×5 (00:17→08:03)
[2016-09-02] MEDS: NS IV 1000 ML 1,000 ML IV SCH (05:31)
[2016-09-02] MEDS: CATHETER FLUSH 10 ML SYR IV SCH (05:31)
[2016-09-02 06:21] LABS: BASOPHILS % (AUTO) 1 % (0-10); EOSINOPHILS # (AUTO) 0.4 10^3/uL (0.0-0.3); EOSINOPHILS % (AUTO) 6 % (0-10); LYMPHOCYTES # (AUTO) 2.3 X 10^3 (1.0-4.0); LYMPHOCYTES % (AUTO) 40 % (12-44); MEAN CORPUSCULAR HEMOGLOBIN 31 PG (25-34); MEAN CORPUSCULAR HGB CONC 33 G/DL (32-36); MEAN CORPUSCULAR VOLUME 96 FL (80-99); MEAN PLATELET VOLUME 11.4 FL (7.4-10.4); MONOCYTES # (AUTO) 0.6 X 10^3 (0.0-1.0); MONOCYTES % (AUTO) 11 % (0-12); NEUTROPHILS # (AUTO) 2.5 X 10^3 (1.8-7.8); NEUTROPHILS % (AUTO) 42 % (42-75); PLATELET COUNT 161 10^3/uL (130-400); RED BLOOD COUNT 4.16 10^6/uL (4.35-5.85); RED CELL DISTRIBUTION WIDTH 12.8 % (10.0-14.5); WHITE BLOOD COUNT 5.8 10^3/uL (4.3-11.0)
[2016-09-02 06:42] LABS: CALCIUM 8.2 MG/DL (8.5-10.1); CHOLESTEROL 216 MG/DL (< 200); CREATININE SERUM 1.55 MG/DL (0.60-1.30); DIRECT LDL 158 MG/DL (1-129); PHOSPHORUS 2.9 MG/DL (2.3-4.7); TRIGLYCERIDES 177 MG/DL (<150); VLDL CHOLESTEROL 35 MG/DL (5-40)
[2016-09-02] MEDS ORDERED: amLODIPine 10 MG (NORVASC) TAB PO ONE (06:45)
[2016-09-02] MEDS ORDERED: FLU TRIvalent (5 YOA+) 2016-17 (AFLURIA) 0.5 ML IM ONE (07:15)
--- NOTE | 2016-09-02 08:09 | Consultation-Cardiology ---
HPI-Cardiology Cardiology Consultation Date of Consultation 09/02/16 Date of Admission Indication: chest pain HPI 54-year-old gentleman with history of coronary artery disease, hypertension hyperlipidemia, has been having back pain, diagnosed with kidney stone, yesterday afternoon started having left-sided chest discomfort, became more concerned about his pain came to the emergency room for evaluation, given nitroglycerin and reported improvement, denied any further episode of chest pain , no shortness of breath, no palpitation, still having significant back pain. Home Medications & Allergies Allergies: Coded Allergies: ibuprofen (Verified Allergy, Unknown, 09/25/07) Home Medication List Reviewed: Yes WQX-Yzzfrj-Vbcnyx Hx Patient Social History Marital Status: Alcohol Use: Denies Use Recreational Drug Use: No Smoking Status: Unknown if Ever Smoked Type Used: Smokeless Tobacco Recent Foreign Travel: No Recent Infectious Disease Expo: No Recent Hopitalizations: Yes (KIDNEY STONES, AND STENT PLACED) Physical Abuse Screen: No Sexual Abuse: No Immunizations Up To Date Tetanus Booster (TDap): Less than 5yrs Date of Influenza Vaccine: Jul 27, 2014 Past Medical History past medical history as discussed below Family Medical History Significant Family History: No Pertinent Family Hx Family History: FH: CHF (congestive heart failure) 19 MOTHER Constitutional: see HPI weakness EENTM: no symptoms reported see HPI Respiratory: no symptoms reported see HPI Cardiovascular: see HPI chest painNo edema, No Hx of Intervention, No palpitations, No syncope, No vascular heart diseas, No other Gastrointestinal: LUQ LLQ see HPI Genitourinary: see HPI decreased output Musculoskeletal: no symptoms reported see HPI Skin: no symptoms reported see HPI Psychiatric/Neurological: No Symptoms Reported See HPI Reviewed Test Results Reviewed Test Results Lab Laboratory Tests Test 09/01/16 19:10 09/02/16 00:52 09/02/16 05:40 Range/Units Activated Partial Thromboplast Time 27 24-35 SEC Alanine Aminotransferase (ALT/SGPT) 21 0-55 U/L Albumin 3.7 3.2-4.5 G/DL Alkaline Phosphatase 66 40-136 U/L Anion Gap 9 6 5-14 MMOL/L Aspartate Amino Transf (AST/SGOT) 19 5-34 U/L BUN/Creatinine Ratio 9 9 Basophils # (Auto) 0.0 0.0 0.0-0.1 10^3/uL Basophils (%) (Auto) 1 1 0-10 % Blood Urea Nitrogen 13 14 7-18 MG/DL Calcium Level 8.7 8.2 L 8.5-10.1 MG/DL Carbon Dioxide Level 23 25 21-32 MMOL/L Chloride Level 107 108 H 98-107 MMOL/L Creatinine 1.51 H 1.55 H 0.60-1.30 MG/DL Eosinophils # (Auto) 0.4 H 0.4 H 0.0-0.3 10^3/uL Eosinophils (%) (Auto) 6 6 0-10 % Estimat Glomerular Filtration Rate 49 47 Glucose Level 95 88 70-105 MG/DL Hematocrit 43 40 40-54 % Hemoglobin 13.8 13.0 L 13.3-17.7 G/DL INR Comment 1.0 0.8-1.4 Lymphocytes # (Auto) 2.3 2.3 1.0-4.0 X 10^3 Lymphocytes (%) (Auto) 34 40 12-44 % Magnesium Level 2.1 2.0 1.8-2.4 MG/DL Mean Corpuscular Hemoglobin 31 31 25-34 PG Mean Corpuscular Hemoglobin Concent 33 33 32-36 G/DL Mean Corpuscular Volume 94 96 80-99 FL Mean Platelet Volume 11.5 H 11.4 H 7.4-10.4 FL Monocytes # (Auto) 0.8 0.6 0.0-1.0 X 10^3 Monocytes (%) (Auto) 12 11 0-12 % Myoglobin 61.3 10.0-92.0 NG/ML Neutrophils # (Auto) 3.3 2.5 1.8-7.8 X 10^3 Neutrophils (%) (Auto) 48 42 42-75 % Platelet Count 185 161 130-400 10^3/uL Potassium Level 3.8 4.0 3.6-5.0 MMOL/L Prothrombin Time 12.5 12.2-14.7 SEC Red Blood Count 4.52 4.16 L 4.35-5.85 10^6/uL Red Cell Distribution Width 12.8 12.8 10.0-14.5 % Sodium Level 139 139 135-145 MMOL/L Total Bilirubin 0.7 0.1-1.0 MG/DL Total Protein 7.0 6.4-8.2 G/DL Troponin I < 0.30 < 0.30 <0.30 NG/ML White Blood Count 6.7 5.8 4.3-11.0 10^3/uL Cholesterol Level 216 H < 200 MG/DL HDL Cholesterol 35 L 40-60 MG/DL LDL Cholesterol Direct 158 H 1-129 MG/DL Phosphorus Level 2.9 2.3-4.7 MG/DL Triglycerides Level 177 H <150 MG/DL VLDL Cholesterol 35 5-40 MG/DL Physical Exam Vital Signs Vital Sign - Last 12Hours 09/01/16 19:02 Temp 97.1 Pulse 60 Resp 20 B/P 177/114 Pulse Ox 92 O2 Delivery Room Air Capillary Refill : Less Than 3 Seconds General Appearance: No Apparent Distress WD/WN Eyes: Bilateral Eye EOMI, Bilateral Eye Normal Inspection, Bilateral Eye PERRL HEENT: PERRL/EOMI TMs Normal Normal ENT Inspection Pharynx Normal Neck: Full Range of Motion Normal Inspection Non Tender Supple Carotid Bruit Respiratory: Chest Non Tender Lungs Clear Normal Breath Sounds No Accessory Muscle Use No Respiratory Distress Cardiovascular: Regular Rate, Rhythm No Edema No Gallop No JVD No Murmur Normal Peripheral Pulses Gastrointestinal: Normal Bowel Sounds No Organomegaly No Pulsatile Mass Non Tender Soft Back: Normal Inspection No CVA Tenderness No Vertebral Tenderness Extremity: Normal Capillary Refill Normal Inspection Normal Range of Motion Non Tender No Calf Tenderness No Pedal Edema Neurologic/Psychiatric: Alert Oriented x3 No Motor/Sensory Deficits Normal Mood/Affect Skin: Normal Color Warm/Dry Lymphatic: No Adenopathy A/P-Cardiology Admission Diagnosis Chest pain nonspecific etiology Kidney stone excellent coronary artery disease Hypertension Hyperlipidemia Assessment/Plan Chest pain, nonspecific etiology, chronic stable angina. Responsive to nitroglycerin, continue to monitor Kidney stone, left hydronephrosis, managed by Dr. Reddy. Coronary artery disease, history of multiple intervention, had 2 stents placed in the LAD 2.7520 mm, balloon angioplasty using 3.020 mm MM or balloon done in 2012. Cardiac catheterization was done again in May 2015 showing severe in-stent restenosis in the mid LAD, had complex intervention with deployment of 2.2512 mm integrity bare-metal stent expanded to 2.45 mm distally and 2.6 mm at the overlap area, severe stenosis at the midright coronary artery, small artery, treated medically, mild disease at the proximal LAD. Most recent cardiac catheterization done February 2016 revealed patent stent in the proximal and mid LAD with 30-40 percent in-stent restenosis, nonobstructive disease. 60 percent stenosis at the distal left circumflex, dominant artery. 80 percent mid RCA stenosis, small artery not amendable to intervention treated medically, EKG showed T-wave inversion in the anterolateral leads which has been present previously. Continue to monitor. Hypertension, poor control, restart home medication, monitor blood pressure Hyperlipidemia, was on Praulent, continue to monitor lipids Sick sinus syndrome, has been on Coreg, continue to monitor blood pressure, received Norvasc this morning. Peptic ulcer disease, history of GI bleed. Maintained on protonix Clinical Quality Measures AMI/AHF: ASA po Prior to arrival: No DVT/VTE Risk/Contraindication: Risk Factor Score Per Nursin RFS Level Per Nursing on Admit: 2=Moderate JESSICA VARGAS MD Sep 02, 2016 08:09
[2016-09-02] MEDS ORDERED: ASPIRIN E.C. 325 MG (ECOTRIN) TABLET PO SCH (09:00)
[2016-09-02] MEDS ORDERED: oxyCODONE/APAP 10/325MG (PERCOCET 10) TABLET PO PRN (09:00)
[2016-09-02] MEDS ORDERED: AMLO5TAB2 PO (09:25)
[2016-09-02] MEDS ORDERED: TICA90TA PO (09:25)
[2016-09-02] MEDS ORDERED: ASPI-983 PO (09:25)
--- NOTE | 2016-09-02 12:43 | CONSULTATION REPORT ---
DATE OF CONSULTATION: 09/02/2016 ATTENDING PHYSICIAN: Dr. Greer. SUMMARY: 55-year-old white man known to me who underwent a left ESWL for a left proximal ureteral stone March 25. He failed to come for follow-up despite calling him. He is being admitted with the same complaint he had back in February before the stone, namely left-sided chest pain. He has been having left hydronephrosis. CAT scan obtain as an outpatient that morning did confirm hydronephrosis, chronic in origin with fragments of the previously fragmented stone still there at the proximal ureter, changed by a 6 mm fragments to prevent the other from passing as well. The patient apparently had a negative cardiac work-up again. He says his pain is better. IMPRESSION: Left proximal ureteral stones. RECOMMENDATION: PLAN: I discussed with the patient the plan for him. I will see him back on Thursday at the office and we will arrange him to have surgery on Thursday; first try to do ureteroscopy with lithotripsy and if unable to do so, the ESWL will be here so we will believe blast the stone again. He fully understand the plan Job ID: [id number] Dictated Date: 09/02/2016 09:18:33 [employer] Date: 09/02/2016 12:36:55/[place]
[2016-09-02] MEDS ORDERED: OXYC-465 PO (12:46)
--- NOTE | 2016-09-02 18:32 | History & Physicial ---
History of Present Illness History of Present Illness Reason for visit/HPI This is a 55 year old male with a history of CAD who presented to the emergency room with left lower chest pain. He has a history of a left renal stone with associated hydronephrosis and it was felt that his pain was likely from his stone. However, his pain was relieved with nitroglycerin. Due to his coronary history, it was decided to admit him to rule out cardiac etiology and consult urology for his ongoing left ureteral stone with hydronephrosis. Date of Admission Sep 01, 2016 at 8:15 pm I consulted on this patient on 09/02/16 18:27 Attending Physician Funmi Greer DO Admitting Physician Funmi Greer DO Consult Allergies and Home Medications Allergies Coded Allergies: ibuprofen (Verified Allergy, Unknown, 09/25/07) Home Medications Amlodipine Besylate 5 Mg Tablet 5 MG PO DAILY (Reported) LAST FILLED #30 10-4-16 Aspirin 81 Mg Tablet.dr 81 MG PO DAILY (Reported) Oxycodone HCl/Acetaminophen 1 Each Tablet #40 1 TAB PO Q4H PRN PRN MODERATE PAIN Prescribed by: FUNMI GREER on 09/02/16 1246 Ticagrelor 90 Mg Tablet 90 MG PO BID (Reported) Past Rrtvdmy-Fqtawx-Dvwdou Hx Patient Social History Marrital Status: Alcohol Use: Denies Use Recreational Drug Use: No Smoking Status: Unknown if Ever Smoked Type Used: Smokeless Tobacco Physical Abuse Screen: No Sexual Abuse: No Recent Foreign Travel: No Contact w/other who traveled: No Recent Hopitalizations: Yes (KIDNEY STONES, AND STENT PLACED) Recent Infectious Disease Expo: No Immunizations Up To Date Tetanus Booster (TDap): Less than 5yrs Date of Influenza Vaccine: Jul 27, 2014 Seasonal Allergies Seasonal Allergies: No Surgeries HX Surgeries: Yes (LITHOTRIPSY, 2-CARDIAC STENTS PLACED) Surgeries: Cardiac, Coronary Stent, Renal Respiratory Hx Respiratory Disorders: No Cardiovascular Hx Cardiovascular Disorders: Yes (STENT PLACED IN 2005, ANGIOPLASTY IN 2012) Cardiac Disorders: Coronary Artery Disease, Heart Attack, High Cholesterol, Hypertension Neurological Hx Neurological Disorders: Yes Reproductive System Hx Reproductive Disorders: No Genitourinary Hx Genitourinary Disorders: Yes Genitourinary Disorders: Kidney Stones Gastrointestinal Hx Gastrointestinal Disorders: Yes (BLEEDING ULCER) Gastrointestinal Disorders: Gastroesophageal Reflux, Gastrointestinal Bleed, Ulcer Musculoskeletal Hx Musculoskeletal Disorders: Yes (3 BULGING DISKS) Musculoskeletal Disorders: Chronic Back Pain Endocrine Hx Endocrine Disorders: No HEENT HX ENT Disorders: No Cancer Hx Cancer: No Psychosocial Hx Psychiatric Problems: No Integumentary HX Skin/Integumentary Disorder: No Blood Transfusions Hx Blood Disorders: No Family Medical History Significant Family History: No Pertinent Family Hx Family Hx: FH: CHF (congestive heart failure) 19 MOTHER Constitutional: No no symptoms reported, No see HPI, No chills, No diaphoresis , No dizziness, No fever, No malaise, No weakness, No weight gain, No weight loss, No other Respiratory: No no symptoms reported, No see HPI, No cough, No dyspnea on exertion, No hemoptysis, No orthopnea, No phlegm, No short of breath, No stridor , No wheezing, No other Cardiovascular: chest pain Gastrointestinal: LUQ Genitourinary: No no symptoms reported, No see HPI, No decreased output, No discharge, No dysuria, No frequency, No hematuria, No hesitancy, No incontinence , No nocturia, No pain, No other Musculoskeletal: back pain Skin: No no symptoms reported, No see HPI, No change in color, No change in hair/nails, No dryness, No hx of skin cancer, No lesions, No lumps, No pruritus , No rash, No other Psychiatric/Neurological: Denies No Symptoms Reported, Denies See HPI, Denies Anxiety, Denies Depressed, Denies Emotional Problems, Denies Headache, Denies Numbness, Denies Paresthesia, Denies Pre-Existing Deficit, Denies Seizure, Denies Tingling, Denies Tremors, Denies Weakness, Denies Other Physical Exam Vital Signs Vital Sign - Last 12Hours 09/01/16 19:02 Temp 97.1 Pulse 60 Resp 20 B/P 177/114 Pulse Ox 92 O2 Delivery Room Air Capillary Refill : Less Than 3 Seconds General Appearance: No Apparent Distress HEENT: Normal ENT Inspection Neck: Supple Respiratory: Lungs Clear Cardiovascular: Regular Rate, Rhythm Systolic Murmur Gallop/S3 Gastrointestinal: Normal Bowel Sounds Non Tender Soft Back: No CVA Tenderness Extremity: Non Tender No Calf Tenderness No Pedal Edema Neurologic/Psychiatric: Alert Oriented x3 Skin: Normal Color Comments Laboratory Tests 09/01/16 19:10: Activated Partial Thromboplast Time 27, Alanine Aminotransferase (ALT/SGPT) 21, Albumin 3.7, Alkaline Phosphatase 66, Anion Gap 9, Aspartate Amino Transf (AST/ SGOT) 19, BUN/Creatinine Ratio 9, Basophils # (Auto) 0.0, Basophils (%) (Auto) 1 , Blood Urea Nitrogen 13, Calcium Level 8.7, Carbon Dioxide Level 23, Chloride Level 107, Creatinine 1.51H, Eosinophils # (Auto) 0.4H, Eosinophils (%) (Auto) 6 , Estimat Glomerular Filtration Rate 49, Glucose Level 95, Hematocrit 43, Hemoglobin 13.8, INR Comment 1.0, Lymphocytes # (Auto) 2.3, Lymphocytes (%) ( Auto) 34, Magnesium Level 2.1, Mean Corpuscular Hemoglobin 31, Mean Corpuscular Hemoglobin Concent 33, Mean Corpuscular Volume 94, Mean Platelet Volume 11.5H, Monocytes # (Auto) 0.8, Monocytes (%) (Auto) 12, Myoglobin 61.3, Neutrophils # ( Auto) 3.3, Neutrophils (%) (Auto) 48, Platelet Count 185, Potassium Level 3.8, Prothrombin Time 12.5, Red Blood Count 4.52, Red Cell Distribution Width 12.8, Sodium Level 139, Total Bilirubin 0.7, Total Protein 7.0, Troponin I < 0.30, White Blood Count 6.7 09/02/16 00:52: Troponin I < 0.30 09/02/16 05:40: Anion Gap 6, BUN/Creatinine Ratio 9, Basophils # (Auto) 0.0, Basophils (%) (Auto ) 1, Blood Urea Nitrogen 14, Calcium Level 8.2L, Carbon Dioxide Level 25, Chloride Level 108H, Creatinine 1.55H, Eosinophils # (Auto) 0.4H, Eosinophils (% ) (Auto) 6, Estimat Glomerular Filtration Rate 47, Glucose Level 88, Hematocrit 40, Hemoglobin 13.0L, Lymphocytes # (Auto) 2.3, Lymphocytes (%) (Auto) 40, Magnesium Level 2.0, Mean Corpuscular Hemoglobin 31, Mean Corpuscular Hemoglobin Concent 33, Mean Corpuscular Volume 96, Mean Platelet Volume 11.4H, Monocytes # (Auto) 0.6, Monocytes (%) (Auto) 11, Neutrophils # (Auto) 2.5, Neutrophils (%) (Auto) 42, Platelet Count 161, Potassium Level 4.0, Red Blood Count 4.16L, Red Cell Distribution Width 12.8, Sodium Level 139, White Blood Count 5.8, Cholesterol Level 216H, HDL Cholesterol 35L, LDL Cholesterol Direct 158H, Phosphorus Level 2.9, Triglycerides Level 177H, VLDL Cholesterol 35 Assessment/Plan Assessment and Plan 1. Chest Pain in patient with history of CAD--admit and repeat cardiac enzymes , monitor on telemetry, consult cardiology 2. Left renal stone with hydronephrosis--admit, hydrate, pain control, consult urology 3. Hypertension--resume home medications 4. History of Noncompliance--did not followup on renal stone and according to pharmacy records has not filled his medications for several months Clinical Quality Measures AMI/AHF: ASA po Prior to arrival: No DVT/VTE Risk/Contraindication: Risk Factor Score Per Nursin RFS Level Per Nursing on Admit: 2=Moderate FUNMI GREER DO Sep 02, 2016 6:32 pm
--- NOTE | 2016-09-02 18:44 | Discharge Summary ---
Diagnosis/Chief Complaint Date of Admission Sep 01, 2016 at 8:15 pm Date of Discharge Sep 02, 2016 at 1:14 pm Discharge Date: Sep 02, 2016 Admission Diagnosis Admission Diagnosis 1. Chest Pain in patient with history of CAD--admit and repeat cardiac enzymes , monitor on telemetry, consult cardiology 2. Left renal stone with hydronephrosis--admit, hydrate, pain control, consult urology 3. Hypertension--resume home medications 4. History of Noncompliance--did not followup on renal stone and according to pharmacy records has not filled his medications for several months Discharge Diagnosis 1. Chest Pain--noncardiac in etiology--felt to be related to left sided renal stone 2. Left Renal Stone with Hydronephrosis 3. Hypertension 4. Noncompliance 5. History of CAD--stable Reason Hospital Visit This is a 55 year old male with a history of CAD who presented to the emergency room with left lower chest pain. He has a history of a left renal stone with associated hydronephrosis and it was felt that his pain was likely from his stone. However, his pain was relieved with nitroglycerin. Due to his coronary history, it was decided to admit him to rule out cardiac etiology and consult urology for his ongoing left ureteral stone with hydronephrosis. Discharge Summary Hospital Course Hospital Course This is a 55 year old male with a history of CAD who presented to the emergency room with left lower chest pain. He has a history of a left renal stone with associated hydronephrosis and it was felt that his pain was likely from his stone. However, his pain was relieved with nitroglycerin. Due to his coronary history, it was decided to admit him to rule out cardiac etiology and consult urology for his ongoing left ureteral stone with hydronephrosis. He was admitted as a cardiac stepdown patient to the ICU with telemetry. He remained in a normal sinus rhythm. His repeat cardiac enzymes were negative. Cardiology was consulted and felt his chest pain was noncardiac in etiology. He required fentanyl for pain. His pain became more left sided and low back and it was felt his pain was likely from his left renal stone with associated hydronephrosis. Dr. Reddy was consulted and the patient is being scheduled for an outpatient procedure on his left renal stone for next Thursday when the lithotripsy will be available. He was given oral oxycodone to make sure it controlled his pain and then he was discharged home to resume his previous home medications, to hydrate and to use oxycodone as needed for pain. It is of note the the patient never followed up with Dr. Reddy on his left ureteral stone after he was seen last year, and that according to pharmacy records, he has only filled one prescription in the past year for his heart medications. Labs Laboratory Tests 09/01/16 19:10: Creatinine 1.51H, Eosinophils # (Auto) 0.4H, Mean Platelet Volume 11.5H 09/02/16 00:52: 09/02/16 05:40: Creatinine 1.55H, Eosinophils # (Auto) 0.4H, Mean Platelet Volume 11.4H, Calcium Level 8.2L, Chloride Level 108H, Cholesterol Level 216H, HDL Cholesterol 35L, Hemoglobin 13.0L, LDL Cholesterol Direct 158H, Red Blood Count 4.16L, Triglycerides Level 177H Procedures None. Consultations Dr. Radhika Reddy Discharge Physical Examination Allergies: Coded Allergies: ibuprofen (Verified Allergy, Unknown, 09/25/07) Vitals & I&Os Vital Signs Date Time Temp Pulse Resp B/P Pulse Ox O2 Delivery O2 Flow Rate FiO2 09/02/16 13:14 48 20 166/98 96 09/02/16 12:08 Room Air 09/02/16 12:00 97.4 General Appearance: Alert, Oriented X3, Cooperative, No Acute Distress Respiratory: Clear to Auscultation Cardiovascular: Regular Rate Abdominal: Normal Bowel Sounds, Soft, No Tenderness Extremities: No Clubbing, No Cyanosis, No Edema Neuro: Normal Gait, Normal Speech Psych/Mental Status: Mental Status NL, Mood NL Discharge Home Medications Reviewed and agree with Discharge Medication list on patient's Discharge Instruction sheet Instructions to Patient/Family Please see electonic discharge instructions given to patient. Clinical Quality Measures AMI/AHF: ASA po Prior to arrival: No DVT/VTE Risk/Contraindication: Risk Factor Score Per Nursin RFS Level Per Nursing on Admit: 2=Moderate JORDY JAIMES DO Sep 02, 2016 6:44 pm
[2016-09-02] MEDS ORDERED: TICAGRELOR 90 MG TABLET (BRILINTA) PO SCH (21:00)
[2016-09-03] MEDS ORDERED: ASPIRIN E.C. 81 MG (ECOTRIN) TAB PO SCH (09:00)
[2016-09-03] MEDS ORDERED: amLODIPine 5 MG (NORVASC) TAB PO SCH (09:00)
== END 2016-09-02 13:14 | disposition home or self-care (01) ==
LOC: EDUNIT# 18:56 → ER 18:58 → ICU 20:15
PROVIDERS: ADMIT Family Medicine; ATTEND Family Medicine
DX: R07.89 Other chest pain (principal); N13.2 Hydronephrosis with renal and ureteral calculous obstruction; I10 Essential (primary) hypertension; Z91.19 Patient's noncompliance with other medical treatment and regimen; I25.119 Atherosclerotic heart disease of native coronary artery with unspecified angina pectoris; T82.855D Stenosis of coronary artery stent, subsequent encounter; K21.9 Gastro-esophageal reflux disease without esophagitis; E78.5 Hyperlipidemia, unspecified; I49.5 Sick sinus syndrome
CPT/HCPCS: 36415; 71010; 74000; 80048; 80053; 80061; 83735; 83874; 84100; 84484; 85025; 85610; 85730; 93005; 96374; G0378

== ENCOUNTER → 2016-09-01 | Outpatient (CLI) | payer OTHER ==
[~2016-09-01] MED LIST changes: +CATHETER FLUSH 10 ML SYR IV PRN; +IOHEXOL 350 MG/ML 100 ML (OMNIPAQUE 350) VIAL IV ONE; +NS 100 ML (IVPB) BAG IV ONE
--- OUTSIDE RECORDS SUMMARY | 2016-09-01 09:18 | XMS REPORT | Continuity of Care Document ---
Author Author [facility] Organization [facility] Address Unknown Phone Unavailable Care Team Providers Care Research Intern Name Role Phone JORDY JAIMES DO PCP Insurance Providers Payer Name Policy Number Subscriber Name Relationship Self Pay Pending Mery Apprv Daniel Meek Jr 18 Self / Same As Patient Advance Directives Directive Response Recorded Date/Time Advance Directives No 03/07/16 11:04pm Health Care Power of Gas Engine Operator Generators No 03/07/16 11:04pm Organ Donor No 03/07/16 [...] Tablet, 10 Mg Oral Daily 04/05/13 Discontinued [place]-3 Fatty Acids/Fish Oil 1 Each Capsule, 3 [...] - 99.5) 03/08/2016 3:15pm Temperature (Calculated Celsius) 36.01484 degrees C (36.4 - 37.5) 03/08/2016 11:00am [...] 9.00 inches 03/07/2016 11:02pm Height (Calculated Centimeters) 175.462156 cm 03/07/2016 11:02pm Weight (Pounds) 269 pounds 03/08/2016 6:00am Weight (Ounces) 8.0 oz 03/08/2016 6:00am Weight (Calculated Grams) 248738.145 gm 03/08/2016 6:00am Weight (Calculated Kilograms) 122.401378 kilograms 03/08/2016 6:00am Calculated BMI 39.8 03/07/2016 [...] SELECTED GROUPS OF HIGH RISK PATIENTS. [employer] [place] [employer] OF CHEST PHYSICIANS CONSENSUS CONFERENCE ON ANTITHROMBOTIC THERAPY (2000). Activated Partial Thromboplast Time 26 SEC 24-35 03/07/2016 7:50pm 06/2016 8:27pm D-Dimer 0.56 UG/ML H 0.00-0.49 03/07/2016 7:50pm 03/07/2016 8:28pm Urine Color YELLOW 03/07/2016 11:30pm 03/07/2016 11:56pm Urine Clarity CLEAR 03/07/2016 11:30pm 03/07/2016 11:56pm Urine pH 5 5-9 03/07/2016 11:30pm 03/07/2016 11:56pm Urine Specific [place] 1.025 * 1.016-1.022 03/07/2016 11:30pm 2015 11:56pm [...] Discharge/Depart Date Attending Provider Admitted Inpatient [facility] 03/07/16 10:32pm PALLAVI FRASER DO Recent Diagnosis Ureterovesical junction (UVJ) obstruction
[2016-09-01 09:55] LABS: ALBUMIN 3.7 G/DL (3.2-4.5); BILIRUBIN,DIRECT 0.2 MG/DL (0.0-0.3); BILIRUBIN,INDIRECT 0.6 MG/DL; BILIRUBIN,TOTAL 0.8 MG/DL (0.1-1.0); TOTAL PROTEIN 6.9 G/DL (6.4-8.2)
[2016-09-01 10:23] LABS: CREATININE SERUM 1.5 MG/DL (0.60-1.30)
--- NOTE | 2016-09-01 12:00 | Diagnostic Imaging Report ---
PROCEDURE: CT abdomen and pelvis with contrast. TECHNIQUE: Multiple contiguous axial images were obtained through the abdomen and pelvis after administration of intravenous contrast. INDICATION: Dilatation of the left renal pelvis seen on ultrasound. 75 mL of opaque-350 is administered intravenously. COMPARISON: CT scan of 03/08/2016 is reviewed. FINDINGS: The lung bases appear clear. The liver demonstrates diffuse fatty infiltration. The spleen, the pancreas, the adrenals and the gallbladder appear unremarkable. There is dgsyltxf-lm-fctvta left hydronephrosis increased from 03/08/2016 exam. There is decreased enhancement in the left kidney parenchyma and delayed excretion from obstructive findings related to two proximal left ureter stones seen at the L3-L4 level. The larger stone is 8 mm in size and slightly smaller stone is seen just proximal to it. The left kidney demonstrates a 2 mm stone, nonobstructive in the mid left renal parenchyma. The right kidney demonstrates nonobstructive stones up to 4 mm in size in the upper pole of the right kidney. The abdominal aorta is normal in caliber. No para-aortic significantly enlarged lymph nodes are seen. There is no bowel obstruction. The appendix is normal. There is no significant free fluid or fluid collection in the abdomen or pelvis. No urinary bladder stones seen. The osseous structures demonstrate mild degenerative changes at the L5-S1 level. IMPRESSION: There is boyadcnx-qf-kqbktg hydronephrosis secondary to proximal left ureteric stones up to 8 mm in size. Other nonobstructive stones in the kidneys seen. The findings were discussed with Dr. Greer by Dr. Avery at the time of dictation. Dictated by: Dictated on workstation # [id number]
[2016-09-01 12:11] LABS: CALCIUM 8.8 MG/DL (8.5-10.1); POTASSIUM 4.2 MMOL/L (3.6-5.0)
== END ==
LOC: RAD 09:14
PROVIDERS: ATTEND Family Medicine
DX: R94.4 Abnormal results of kidney function studies (principal); E78.2 Mixed hyperlipidemia
CPT/HCPCS: 36415; 74177; 80053; 80061; 80076; 82565; 84520

== ENCOUNTER → 2018-07-22 | Outpatient (CLI) | payer SELFPAY ==
[~2018-07-22] MED LIST changes: +ACHD5005 PO; -AMLO5TAB2 PO; +AMLO5TAB7 PO; -HYDR-3812 PO; +HYDR-4226 PO; -HYDR-757 PO; +NAPR-915 PO; -NAPR500T3 PO; +OXYC-465 PO
== END ==
LOC: CARD 09:26
PROVIDERS: ATTEND Internal Medicine Cardiovascular Disease
DX: I25.10 Atherosclerotic heart disease of native coronary artery without angina pectoris (principal); R07.89 Other chest pain; E78.5 Hyperlipidemia, unspecified; I51.7 Cardiomegaly; I49.5 Sick sinus syndrome; I34.0 Nonrheumatic mitral (valve) insufficiency
CPT/HCPCS: 93306

== ENCOUNTER → 2018-07-26 | Outpatient (CLI) | payer SELFPAY ==
[~2018-07-26] VITALS: Ht 175.3 cm; Wt 126.6 kg
[~2018-07-26] MED LIST changes: +REGADENOSON 0.4 MG/5 ML SYR (LEXISCAN) IV ONE
[2018-07-26] MEDS: CATHETER FLUSH 10 ML SYR IV PRN ×2 (07:16→09:15)
[2018-07-26 09:13] VITALS: BP 135/86
--- NOTE | 2018-07-26 12:07 | STRESS TEST ---
DATE OF SERVICE: 07/26/2018 LEXISCAN MYOVIEW STRESS TEST REPORT Baseline heart rate is 54, baseline blood pressure 131/94. Baseline EKG is sinus rhythm with no ischemic changes. In summary, the patient was injected with 10.58 mCi of technetium-99 Myoview and the resting images were obtained. Then, the patient received 0.4 mg of Lexiscan followed by 31.2 mCi of technetium-99 Myoview. Throughout the test, there were no EKG changes. The resting and stress images were reviewed and compared in the short axis, horizontal long axis, and vertical long axis views. Review of the images showed diaphragmatic attenuation with mild decreased uptake involving the mid to apical inferior wall with subtle reversibility. SSS is 4, SDS 3, TID value 1.07. On the gated images, the left ventricle appeared to be in normal size with normal contractility. Calculated ejection fraction 48%. CONCLUSION: 1. The patient tolerated Lexiscan well. 2. Diaphragmatic attenuation with mild decreased uptake at the mid to apical inferior wall with subtle reversibility probably due to diaphragmatic attenuation. 3. Normal left ventricular size with normal contractility. Calculated ejection fraction 48%. Job ID: [id number] DocumentID: [id number] Dictated Date: 07/26/2018 11:16:11 Minister Date: 07/26/2018 12:07:09 Dictated By: JESSICA VARGAS MD
== END ==
LOC: CARD 07:06
PROVIDERS: ATTEND Internal Medicine Cardiovascular Disease
DX: I25.10 Atherosclerotic heart disease of native coronary artery without angina pectoris (principal); R07.89 Other chest pain; E78.5 Hyperlipidemia, unspecified; I51.7 Cardiomegaly; I49.5 Sick sinus syndrome
CPT/HCPCS: 78452; 93017

== ENCOUNTER 2019-02-27 13:29 | Observation (INO) | payer MEDICARE | END 2019-02-28 09:10 | disposition designated cancer center or children's hospital (05) | LOC: ER 13:29 → ICU 14:17 ==

== ENCOUNTER → 2019-03-29 | Outpatient (CLI) | payer MEDICARE ==
[~2019-03-29] MED LIST changes: -AMLO5TAB7 PO; +AMLO5TAB9 PO; +ATOR80TA76 PO; +CARV3.122; +CLOP75TA28; +FURO40TA4; +HYDR-3812; +POTA20TA15; -REGADENOSON 0.4 MG/5 ML SYR (LEXISCAN) IV ONE
[2019-03-29 09:37] LABS: ALBUMIN 4.2 GM/DL (3.2-4.5); CALCIUM 9.6 MG/DL (8.5-10.1); CREATININE SERUM 1.98 MG/DL (0.60-1.30); PHOSPHORUS 2.8 MG/DL (2.3-4.7); POTASSIUM 4.1 MMOL/L (3.6-5.0)
[2019-03-30 13:44] LABS: URIC ACID 9.6 MG/DL (2.6-7.2)
== END ==
LOC: LAB 08:25
PROVIDERS: ATTEND Internal Medicine Nephrology
DX: I25.810 Atherosclerosis of coronary artery bypass graft(s) without angina pectoris (principal)
CPT/HCPCS: 36415; 80069; 82550; 84550

== ENCOUNTER 2019-04-01 04:22 | Emergency (ER) | payer MEDICARE ==
[~2019-04-01] VITALS: Ht 175.3 cm; Wt 111.1 kg
[~2019-04-01 04:22] MED LIST changes: -CARV3.122; -CLOP75TA28; -FURO40TA4; -HYDR-3812; +NITROGLYCERIN 0.4 MG SL TABS BTL 25'S SL ONE; -POTA20TA15
[2019-04-01] MEDS: NITROGLYCERIN 0.4 MG SL TABS BTL 25'S SL PRN ×3 (04:32→04:43)
[2019-04-01 04:46] LABS: WHITE BLOOD COUNT 6.6 10^3/uL (4.3-11.0)
[2019-04-01 04:47] LABS: BASOPHILS % (AUTO) 1 % (0-10); EOSINOPHILS # (AUTO) 0.4 10^3/uL (0.0-0.3); EOSINOPHILS % (AUTO) 5 % (0-10); HEMATOCRIT 39 % (40-54); HEMOGLOBIN 12.6 G/DL (13.3-17.7); LYMPHOCYTES # (AUTO) 1.9 X 10^3 (1.0-4.0); LYMPHOCYTES % (AUTO) 29 % (12-44); MEAN CORPUSCULAR HEMOGLOBIN 31 PG (25-34); MEAN CORPUSCULAR HGB CONC 32 G/DL (32-36); MEAN CORPUSCULAR VOLUME 97 FL (80-99); MEAN PLATELET VOLUME 11.5 FL (7.4-10.4); MONOCYTES # (AUTO) 0.9 X 10^3 (0.0-1.0); MONOCYTES % (AUTO) 14 % (0-12); NEUTROPHILS # (AUTO) 3.4 X 10^3 (1.8-7.8); NEUTROPHILS % (AUTO) 51 % (42-75); PLATELET COUNT 177 10^3/uL (130-400); RED CELL DISTRIBUTION WIDTH 13.6 % (10.0-14.5)
[2019-04-01] MEDS ORDERED: POTA20TA15 (04:47)
[2019-04-01] MEDS ORDERED: HYDR-3812 (04:47)
[2019-04-01] MEDS ORDERED: CLOP75TA28 (04:47)
[2019-04-01] MEDS ORDERED: FURO40TA4 (04:47)
[2019-04-01] MEDS ORDERED: CARV3.122 (04:47)
--- NOTE | 2019-04-01 04:48 | ED Chest Pain ---
General Chief Complaint: Chest Pain Stated Complaint: CP Source: patient, old records History of Present Illness Date Seen by Provider: Apr 01, 2019 Time Seen by Provider: 04:22 Initial Comments PT ARRIVES VIA POV FROM HOME C/O CHEST PAIN --WOKE HIM UP AROUND 0300--AND RADIATES TO LEFT ARM AND LEFT UPPER BACK RATES PAIN 10/10 + SHORTNESS OF BREATH + SWEATS NO SWELLING IN LEGS/ FEET OR PAIN IN CALVES NO NAUSEA/VOMITING PT HAD 4 VESSEL CABG AT [facility] 02/28/19--ADMITTED HERE 02/27/19 AND HAD MULTIVESSEL DISEASE ON CARDIAC CATH AND THEN TRANSFERRED TO [place] PT HAS HAD AN WA IN THE PAST, AND HAS HAD STENTS X 2 AND ANGIOPLASTY, PRIOR TO HIS CABG STATES THIS FEELS THE SAME PRIOR CARDIAC EVENTS PT SAW [employer] TE[employer]ER AT DR. KEE'S OFFICE ON Thursday03/30/19. GIVEN RX FOR A CHOLESTEROL MEDICATION PT STATES HE IS ON PLAVIX, 81 MG ASPIRIN, AND 2 OR 3 UNKNOWN MEDICATIONS ALL HAVE BEEN STARTED SINCE SURGERY--COREG, LASIX, POTASSIUM AND VITAMIN D, PER MED RECONCILIATION, WELL HYDROCODONE. TOOK 1 FULL ASPIRIN, 1 HYDROCODONE AND AN ANTACID WITHOUT RELIEF, SO CAME TO ER. PCP:[facility] MANAGER ANIMAL: DR. VARGAS--HAS NOT SEEN SINCE CABG--IS SCHEDULED TO SEE HIM 04/21/19. Allergies and Home Medications Allergies Coded Allergies: ibuprofen (Verified Allergy, Unknown, 09/25/07) morphine (Verified Allergy, Unknown, has received Morphine multiple times in the past, 02/28/19) MIGRAINES Home Medications Aspirin 81 Mg Tablet., 81 MG PO DAILY, (Reported) Patient Home Medication List Home Medication List Reviewed: Yes Review of Systems Review of Systems Constitutional: diaphoresis Respiratory: See HPI, Shortness of Air Cardiovascular: See HPI, Chest Pain; Denies Edema, Denies Lightheadedness, Denies Palpitations, Denies Syncope Gastrointestinal: No Symptoms Reported; Denies Abdominal Pain, Denies Nausea, Denies Vomiting Genitourinary: No Symptoms Reported Musculoskeletal: see HPI, back pain Skin: no symptoms reported Psychiatric/Neurological: Anxiety Endocrine: No Symptoms Reported Hematologic/Lymphatic: No Symptoms Reported Past Vdirjtr-Jczdbo-Osvlwg Hx Patient Social History Alcohol Use: Denies Use Recreational Drug Use: No Smoking Status: Never a Smoker (BUT CHEWS) Type Used: Smokeless Tobacco Recent Foreign Travel: No Contact w/Someone Who Travel: No Recent Hopitalizations: Yes (CABG 03/31/19 AT [facility] [place]) Immunizations Up To Date Tetanus Booster (TDap): Less than 5yrs PED Vaccines UTD: No Date of Influenza Vaccine: Jul 27, 2014 Seasonal Allergies Seasonal Allergies: No Past Medical History Surgeries: Yes (LITHOTRIPSY; CARDIAC CATHS WITH STENTS X 2 AND ANGIOPLASTY--LAST CATH 02/28/19 --THEN TO [place] FOR 4 VESSEL CABG) Cardiac, CABG, Coronary Stent, Renal Respiratory: No Currently Using CPAP: No Currently Using BIPAP: No Cardiac: Yes (WA IN 2005; STENTS X 2 --LAST ONE IN 2014; ANGIOPLASTY IN 2012; CARDIAC CATH 02/28/19 WITH TRANSFER TO [place] AND 4 VESSEL CABG; ) Coronary Artery Disease, Heart Attack, High Cholesterol, Hypertension Neurological: No Reproductive Disorders: No Genitourinary: Yes Kidney Stones Gastrointestinal: Yes (BLEEDING ULCER) Gastroesophageal Reflux, Gastrointestinal Bleed, Ulcer Musculoskeletal: Yes (3 BULGING DISKS) Degenerate Disk Disease, Chronic Back Pain Endocrine: No HEENT: No Cancer: No Psychosocial: No Integumentary: No Blood Disorders: No Family Medical History FH: CHF (congestive heart failure) 19 MOTHER No Pertinent Family Hx Physical Exam Vital Signs Vital Signs - First Documented 04/01/19 04/01/19 04:22 04:36 Temp 97.1 Pulse 68 Resp 18 B/P (MAP) 139/95 (110) Pulse Ox 96 O2 Delivery Nasal Cannula O2 Flow Rate 2.0 FiO2 96 Capillary Refill : Less Than 3 Seconds Height, Weight, BMI Height: 5'9.00" Weight: 260lbs. 5.0oz. 118.755594rz; 40.3 BMI Method:Stated General Appearance: No Apparent Distress, Obese HEENT: PERRL/EOMI, Other (POOR DENTITION) Neck: Normal Inspection, Non Tender; No Carotid Bruit Respiratory: Normal Breath Sounds, No Accessory Muscle Use, No Respiratory Distress, Other (SURGICAL WOUNDS WELL HEALED, NO SIGNS OF INFECTION) Cardiovascular: Regular Rate, Rhythm, No Edema, No JVD, No Murmur, Normal Peripheral Pulses Gastrointestinal: Normal Bowel Sounds, No Organomegaly, No Pulsatile Mass, Non Tender, Soft Extremity: Normal Capillary Refill, Normal Inspection, Normal Range of Motion, Non Tender, No Calf Tenderness, No Pedal Edema Neurologic/Psychiatric: Alert, Oriented x3, No Motor/Sensory Deficits, frame fixer II- XII Norm as Tested Skin: Diaphoresis (WARM), Pallor Progress/Results/Core Measures Results/Orders Lab Results Laboratory Tests Test 04/01/19 04:30 Range/Units White Blood Count 6.6 4.3-11.0 10^3/uL Red Blood Count 4.05 L 4.35-5.85 10^6/uL Hemoglobin 12.6 L 13.3-17.7 G/DL Hematocrit 39 L 40-54 % Mean Corpuscular Volume 97 80-99 FL Mean Corpuscular Hemoglobin 31 25-34 PG Mean Corpuscular Hemoglobin Concent 32 32-36 G/DL Red Cell Distribution Width 13.6 10.0-14.5 % Platelet Count 177 130-400 10^3/uL Mean Platelet Volume 11.5 H 7.4-10.4 FL Neutrophils (%) (Auto) 51 42-75 % Lymphocytes (%) (Auto) 29 12-44 % Monocytes (%) (Auto) 14 H 0-12 % Eosinophils (%) (Auto) 5 0-10 % Basophils (%) (Auto) 1 0-10 % Neutrophils # (Auto) 3.4 1.8-7.8 X 10^3 Lymphocytes # (Auto) 1.9 1.0-4.0 X 10^3 Monocytes # (Auto) 0.9 0.0-1.0 X 10^3 Eosinophils # (Auto) 0.4 H 0.0-0.3 10^3/uL Basophils # (Auto) 0.0 0.0-0.1 10^3/uL Prothrombin Time 13.1 12.2-14.7 SEC INR Comment 1.0 0.8-1.4 Activated Partial Thromboplast Time 21 L 24-35 SEC Sodium Level 141 135-145 MMOL/L Potassium Level 3.8 3.6-5.0 MMOL/L Chloride Level 108 H 98-107 MMOL/L Carbon Dioxide Level 22 21-32 MMOL/L Anion Gap 11 5-14 MMOL/L Blood Urea Nitrogen 23 H 7-18 MG/DL Creatinine 1.82 H 0.60-1.30 MG/DL Estimat Glomerular Filtration Rate 39 BUN/Creatinine Ratio 13 Glucose Level 123 H 70-105 MG/DL Calcium Level 8.9 8.5-10.1 MG/DL Corrected Calcium 9.1 8.5-10.1 MG/DL Magnesium Level 2.3 1.6-2.4 MG/DL Total Bilirubin 0.7 0.1-1.0 MG/DL Aspartate Amino Transf (AST/SGOT) 23 5-34 U/L Alanine Aminotransferase (ALT/SGPT) 32 0-55 U/L Alkaline Phosphatase 103 40-136 U/L Total Creatine Kinase 74 30-200 U/L Creatine Kinase MB 1.7 <6.6 NG/ML Myoglobin 73.2 10.0-92.0 NG/ML Troponin I 0.044 H <0.028 NG/ML B-Type Natriuretic Peptide 70.5 <100.0 PG/ML Total Protein 7.4 6.4-8.2 GM/DL Albumin 3.8 3.2-4.5 GM/DL Amylase Level 56 25-125 U/L Lipase 19 8-78 U/L My Orders Orders - CARLEY SANDERS DO Cbc With Automated Diff (04/01/19 04:28) Magnesium (04/01/19 04:28) Chest 1 View, Ap/Pa Only (04/01/19 04:28) Ekg Tracing (04/01/19 04:28) Cardiac Profile 1 (04/01/19 04:28) Comprehensive Metabolic Panel (04/01/19 04:28) Myoglobin Serum (04/01/19 04:28) Protime With Inr (04/01/19 04:28) Partial Thromboplastin Time (04/01/19 04:28) O2 (04/01/19 04:28) Monitor-Rhythm Ecg Trace Only (04/01/19 04:28) Ed Iv/Invasive Line Start (04/01/19 04:28) Creatine Kinase (04/01/19 04:28) Creatine Kinase Mb (04/01/19 04:28) Lipase (04/01/19 04:28) Amylase (04/01/19 04:28) BNP (04/01/19 04:28) Nitroglycerin 0.4 Mg Btl 25's (Nitrostat (04/01/19 04:30) Nitroglycerin 0.4 Mg Btl 25's (Nitrostat (04/01/19 04:22) Ekg Tracing (04/01/19 04:38) Ekg Tracing (04/01/19 04:38) Fentanyl Injection (Sublimaze Injection (04/01/19 05:00) Fentanyl Injection (Sublimaze Injection (04/01/19 05:15) Ed Iv/Invasive Line Start (04/01/19 05:10) Ns Iv 1000 Ml (Sodium Chloride 0.9%) (04/01/19 05:10) Nitro Drip 41409 Mcg/D5w (Nitroglycerin (04/01/19 05:45) Heparin Drip 90506 Unit/500ml (Heparin (04/01/19 05:39) Heparin (Bolus Per Protocol) (Heparin (B (04/01/19 05:39) Pantoprazole Injection (Protonix Injecti (04/01/19 06:45) Lidocaine 2% Viscous 15 Ml (Xylocaine Vi (04/01/19 06:45) Antacid Suspension (Mylanta Suspension (04/01/19 06:45) Fentanyl Injection (Sublimaze Injection (04/01/19 06:32) Medications Given in ED Current Medications Medications Dose Ordered Sig/Letty Route Start Time Stop Time Status Last Admin Dose Admin Al Hydrox/Mg Hydrox/Simethicone 30 ml ONCE ONCE PO 04/01/19 06:45 04/01/19 06:46 DC 04/01/19 06:42 30 ML Fentanyl Citrate 50 mcg ONCE ONCE IVP 04/01/19 05:00 04/01/19 05:01 DC 04/01/19 04:54 50 MCG Fentanyl Citrate 50 mcg ONCE ONCE IVP 04/01/19 05:15 04/01/19 05:16 DC 04/01/19 05:17 50 MCG Heparin Sodium (Porcine) HEPARIN BOLUS ACS PROTOC... 0539 ONCE IV 04/01/19 05:39 04/01/19 05:41 DC 04/01/19 05:55 5,000 UNIT Heparin Sodium/ Dextrose 500 ml @ 0 mls/hr Q0M ONCE IV 04/01/19 05:39 04/01/19 05:41 DC 04/01/19 05:58 20 MLS/HR Lidocaine HCl 15 ml ONCE ONCE PO 04/01/19 06:45 04/01/19 06:46 DC 04/01/19 06:42 15 ML Nitroglycerin 0.4 mg UD PRN SL 04/01/19 04:30 04/01/19 04:44 DC 04/01/19 04:43 0.4 MG Pantoprazole 40 mg ONCE ONCE IV 04/01/19 06:45 04/01/19 06:46 DC 04/01/19 06:42 40 MG Sodium Chloride 1,000 ml @ 0 mls/hr Q0M ONCE IV 04/01/19 05:10 04/01/19 05:11 DC 04/01/19 05:16 0 MLS/HR Vital Signs/I&O 04/01/19 04/01/19 04/01/19 04/01/19 04:22 04:22 04:36 05:50 Temp 97.1 97.1 Pulse 68 68 Resp 18 18 B/P (MAP) 139/95 (110) 163/97 Pulse Ox 96 96 O2 Delivery Nasal Cannula Nasal Cannula Nasal Cannula Nasal Cannula O2 Flow Rate 2.0 2.0 2.00 2.00 FiO2 96 04/01/19 04/01/19 04/01/19 06:00 06:05 07:00 Temp 98.1 Pulse 72 79 69 Resp 18 18 22 B/P (MAP) 152/107 166/104 124/93 (103) Pulse Ox 97 97 93 O2 Delivery Nasal Cannula Nasal Cannula Nasal Cannula O2 Flow Rate 2.00 2.00 2.00 Progress Progress Note : Progress Note GIVEN NTG X 3 WITH COMPLETE, BUT BRIEF RELIEF GIVEN FENTANYL WITH PARTIAL, TRANSIENT RELIEF OF PAIN SIGNIFICANT DROP IN BP WITH THE ABOVE INITIALLY, THEN UP TO 160'S WITH SMALL FLUID BOLUS STARTED ON NITRO DRIP AND HEPARIN DRIP, AND GIVEN ADDITIONAL FENTANYL Initial ECG Impression Date: Apr 01, 2019 Initial ECG Impression Time: 04:27 Initial ECG Rate: 61 Initial ECG Rhythm: Normal Sinus (BORDERLINE ST SEGMENT ELEVATION WITH ST DEPRESSION ANTERIOR/LATERALLY) EKG : EKG Time: 04:31 Rate: 67 Rhythm: Normal Sinus (NON-SPECIFIC --ST DEPRESSION ANTERIOR-LATERALLY) Comment EKG # 3 AT 0436, RATE 72, ST DEPRESSION ANTERIOR-LATERALLY. Diagnostic Imaging Comments CXR--POST OP CHANGES, CARDIOMEGALY, LEFT BASILAR ATELECTASIS/EFFUSION--PENDING RADIOLOGIST REVIEW Departure Communication (Admissions) 0450--CALLED ICU, APPRENTICE COSMETOLOGIST--HOSPITAL IS STILL ON FULL DIVERSION, WITH NO ANTICIPATED DISMISSALS TODAY. 0597--CALLED [facility] MANAGER ANIMAL, DR. AVALOS 0806--SPOKE WITH DR. AVALOS, ACCEPTS PT FOR DIRECT ADMIT TO ICU. ADVISES NITRO DRIP AND HEPARIN DRIP Impression Primary Impression: Chest pain Additional Impressions: RECENT 4 VESSEL CABG Elevated troponin SUSPECTED NSTEMI Recurrent angina status post coronary artery bypass graft HTN (hypertension) Disposition: 02 XFER SHT-TRM HOSP Condition: Improved Transfer Transfer Facility: [facility] Method of Transfer: EMS Departure-Patient Inst. Referrals: NO,LOCAL PHYSICIAN (PCP/Family) Primary Care Physician CARLEY SANDERS DO Apr 01, 2019 04:48
[2019-04-01 04:58] LABS: PROTHROMBIN TIME PATIENT 13.1 SEC (12.2-14.7)
[2019-04-01] MEDS ORDERED: fentaNYL INJECTION 100 MCG/2 ML AMP IVP ONE ×2 (05:00→05:15)
[2019-04-01 05:09] LABS: ALBUMIN 3.8 GM/DL (3.2-4.5); BILIRUBIN,TOTAL 0.7 MG/DL (0.1-1.0); CALCIUM 8.9 MG/DL (8.5-10.1); CREATININE SERUM 1.82 MG/DL (0.60-1.30); MAGNESIUM 2.3 MG/DL (1.6-2.4); POTASSIUM 3.8 MMOL/L (3.6-5.0); TOTAL PROTEIN 7.4 GM/DL (6.4-8.2)
[2019-04-01] MEDS ORDERED: NS IV 1000 ML 1,000 ML IV ONE (05:10)
[2019-04-01 05:16] LABS: CREATINE KINASE MB 1.7 NG/ML (<6.6)
[2019-04-01] MEDS ORDERED: HEParin DRIP 25000 UNIT/500ML 500 ML IV ONE (05:39)
[2019-04-01] MEDS ORDERED: HEParin 1000 UNIT/ML (10ML VIAL) FOR BOLUS IV ONE (05:39)
[2019-04-01] MEDS: NITRO DRIP 25000 MCG/D5W 250 ML IV SCH ×4 (05:50→06:05)
[2019-04-01] MEDS ORDERED: fentaNYL INJECTION 100 MCG/2 ML AMP IVP STA (06:32)
--- NOTE | 2019-04-01 06:35 | NUR ---
shift capt. called [phone]- dispatch called.
[2019-04-01] MEDS ORDERED: LIDOCAINE 2% VISCOUS 15 ML UDC PO ONE (06:45)
[2019-04-01] MEDS ORDERED: PANTOPRAZOLE 40 MG (PROTONIX) VIAL IV ONE (06:45)
[2019-04-01] MEDS ORDERED: ANTACID SUSP 30 ML UDC (MYLANTA) PO ONE (06:45)
[2019-04-01 07:00] VITALS: BP 124/93
--- NOTE | 2019-04-01 07:07 | Diagnostic Imaging Report ---
EXAM: CHEST 1 VIEW, AP/PA ONLY INDICATION: Chest pain. COMPARISON: 02/27/2019. FINDINGS: Cardiomegaly with normal central pulmonary vascularity. Mild atelectasis or infiltrate in the left lung base. No pleural effusion or pneumothorax. Sternotomy. IMPRESSION: 1. Cardiomegaly with normal central pulmonary vascularity. 2. Mild atelectasis or infiltrate in the left lung base. Dictated by: Dictated on workstation # [id number]
== END 2019-04-01 07:30 | disposition short-term general hospital (02) ==
LOC: EDUNIT# 04:22 → ER 04:24
DX: I25.709 Atherosclerosis of coronary artery bypass graft(s), unspecified, with unspecified angina pectoris (principal); R79.89 Other specified abnormal findings of blood chemistry; I10 Essential (primary) hypertension; I25.2 Old myocardial infarction; E78.00 Pure hypercholesterolemia, unspecified; K21.9 Gastro-esophageal reflux disease without esophagitis; Z87.442 Personal history of urinary calculi; Z88.6 Allergy status to analgesic agent; Z88.5 Allergy status to narcotic agent; Z79.02 Long term (current) use of antithrombotics/antiplatelets; Z79.82 Long term (current) use of aspirin; Z95.1 Presence of aortocoronary bypass graft; Z95.5 Presence of coronary angioplasty implant and graft; Z82.49 Family history of ischemic heart disease and other diseases of the circulatory system
CPT/HCPCS: 36415; 71045; 80053; 82150; 82550; 82553; 83690; 83735; 83874; 83880; 84484; 85025; 85610; 85730; 93005; 93041; 96374; 96375; 96376

== ENCOUNTER → 2019-04-11 | Outpatient (CLI) | payer MEDICARE ==
[~2019-04-11] MED LIST changes: +CARV3.122; +CLOP75TA28; +FURO40TA4; +HYDR-3812; -NITROGLYCERIN 0.4 MG SL TABS BTL 25'S SL ONE; +POTA20TA15
[2019-04-11 07:39] LABS: ALBUMIN 3.9 GM/DL (3.2-4.5); CALCIUM 9.1 MG/DL (8.5-10.1); CREATININE SERUM 1.69 MG/DL (0.60-1.30); PHOSPHORUS 2.7 MG/DL (2.3-4.7); POTASSIUM 3.9 MMOL/L (3.6-5.0)
== END ==
LOC: LAB 07:10
PROVIDERS: ATTEND Internal Medicine Nephrology
DX: N17.8 Other acute kidney failure (principal); N18.3 Chronic kidney disease, stage 3 (moderate); I25.810 Atherosclerosis of coronary artery bypass graft(s) without angina pectoris
CPT/HCPCS: 36415; 80069

== ENCOUNTER → 2019-08-25 | Outpatient (CLI) | payer MEDICARE ==
[~2019-08-25] MED LIST changes: -ALFU10TA11 PO; +ALFU10TA12 PO; +LISI1TAB25 PO; -LISI1TAB8 PO; -TAMS0.4C98 PO; +TMSL.4C PO
[2019-08-25 07:58] LABS: ALBUMIN 3.8 GM/DL (3.2-4.5); BILIRUBIN,TOTAL 0.7 MG/DL (0.1-1.0); CALCIUM 8.7 MG/DL (8.5-10.1); CREATININE SERUM 1.45 MG/DL (0.60-1.30); POTASSIUM 4.3 MMOL/L (3.6-5.0); TOTAL PROTEIN 7.3 GM/DL (6.4-8.2)
== END ==
LOC: LAB 07:21
PROVIDERS: ATTEND Internal Medicine Cardiovascular Disease
DX: I11.9 Hypertensive heart disease without heart failure (principal); I25.10 Atherosclerotic heart disease of native coronary artery without angina pectoris; E78.5 Hyperlipidemia, unspecified; I49.5 Sick sinus syndrome
CPT/HCPCS: 36415; 80053; 80061

== ENCOUNTER → 2020-04-20 | Outpatient (CLI) | payer MEDICARE ==
[~2020-04-20] MED LIST changes: +ACHD5005; +ASPI-1238 PO; -ASPI-983 PO; -HYDR-3812; -LISI1TAB25 PO; +LISI1TAB46 PO; -OXYC-465 PO; +OXYC-556 PO; -PANT40TA3 PO; +PANT40TA52 PO
[2020-04-20 07:45] LABS: ALBUMIN 3.8 GM/DL (3.2-4.5); CALCIUM 8.6 MG/DL (8.5-10.1); CREATININE SERUM 1.78 MG/DL (0.60-1.30); POTASSIUM 4.1 MMOL/L (3.6-5.0); TOTAL PROTEIN 7.4 GM/DL (6.4-8.2)
== END ==
LOC: LAB 07:04
PROVIDERS: ATTEND Internal Medicine Cardiovascular Disease
DX: I25.10 Atherosclerotic heart disease of native coronary artery without angina pectoris (principal); I70.0 Atherosclerosis of aorta; I51.7 Cardiomegaly; E78.5 Hyperlipidemia, unspecified; I49.5 Sick sinus syndrome
CPT/HCPCS: 36415; 80053; 80061

== ENCOUNTER → 2020-12-19 | Outpatient (CLI) | payer MEDICARE ==
[~2020-12-19] VITALS: Ht 175 cm; Wt 118.0 kg
[~2020-12-19] MED LIST changes: +AMLO-250 PO; -AMLO5TAB9 PO; +CATHETER FLUSH 10 ML SYR IV PRN; -HYDR-3876 PO; +HYDR-3920 PO; -ISOS30TA3 PO; +ISOS30TA82 PO; +REGADENOSON 0.4 MG/5 ML SYR (LEXISCAN) IV ONE
[2020-12-19 13:35] VITALS: BP 196/104
--- NOTE | 2020-12-19 16:09 | Cardiology Stress Test Report ---
Stress Test Report Date of Procedure/Referring: Date of Procedure: December 19, 2020 PCP Jessica Sanchez MD Admitting Physician No,Local Physician Indications: CP Baseline Heart Rate: 43 Baseline Blood Pressure: Blood Pressure Systolic: 196 Blood Pressure Diastolic: 104 Baseline Vitals Vital Signs Date Time Temp Pulse Resp B/P (MAP) Pulse Ox O2 Delivery O2 Flow Rate FiO2 12/19/20 13:35 45 18 196/104 (134) 98 Room Air Baseline EKG: Baseline EKG: NSR Summary After explaining the procedure to the patient, he signed a consent and then brought to the stress nuclear laboratory. Patient received 0.4 mg Lexiscan for stress test, ECG, heart rate and blood pressure were monitored continuously. Resting and stress dose of radio tracer were injected, imaging was acquired and reviewed in short axis, horizontal long axis and vertical long axis views. TID: 1.06 SSS: 21 SDS: 0 EF: 35 1. Patient tolerated Lexiscan well 2. Decreased uptake involving the mid to apical anterior wall to apex and anterolateral wall with no significant reversibility, probably infarcted area, will consider viability study if patient is symptomatic 3. Prominent left ventricle with diffuse left ventricular hypokinesia EF 35% JESSICA SANCHEZ MD December 19, 2020 16:09
== END ==
LOC: CARD 10:53
PROVIDERS: ATTEND Internal Medicine Cardiovascular Disease
DX: I11.9 Hypertensive heart disease without heart failure (principal); I34.0 Nonrheumatic mitral (valve) insufficiency
CPT/HCPCS: 78452; 93017; 93306; A9502

== ENCOUNTER 2021-08-21 09:12 | Emergency (ER) | payer MEDICARE ==
[~2021-08-21] VITALS: Ht 175 cm; Wt 120.0 kg
[~2021-08-21 09:12] MED LIST changes: -CATHETER FLUSH 10 ML SYR IV PRN; +POTA-179; -POTA20TA15; -REGADENOSON 0.4 MG/5 ML SYR (LEXISCAN) IV ONE
[2021-08-21] MEDS ORDERED: BSS 15 ML IR ONE (10:00)
[2021-08-21] MEDS ORDERED: TETRACAINE 0.5% OPHTH SOLN 4 ML BTL (SINGLE DOSE ONLY) OP ONE (10:00)
[2021-08-21] MEDS ORDERED: FLUORESCEIN (FLUOR-I-STRIPS) 1 MG STRP OU ONE (10:00)
--- NOTE | 2021-08-21 10:09 | ED General ---
General Chief Complaint: General Problems/Pain Stated Complaint: R SIDE OF FACE/EYE SWOLLEN Nursing Triage Note: AMB TO ED WITH SWELLING AROUNG R EYE FOR 2 DAYS WITH BURNING FELLING. BUMPS NOTED ON FOREHEAD. Source of Information: Patient Exam Limitations: No Limitations (ABDOUL GALLEGO STUDENT) History of Present Illness Date Seen by Provider: Aug 21, 2021 Time Seen by Provider: 09:50 Initial Comments Patient is a 60yoM with history of HTN, HLD, NC with multiple stents placed and CABG who presents with 2 day history of right-sided facial swelling and pain that began suddenly on Thursday. He cannot recall any inciting event, was not outside or cleaning garage, etc to be exposed to topical irritant or possible bite. He denies fevers, chills, N/V, SOA, photophobia, changes in hearing and taste. He does report blurry vision in the right eye but no pain with EOM. The swelling began on right auricle and spread medially now involving lateral right nose, right cheek, shinto and back of neck. He has not tried anything OTC, ice or topical medications. He is able to breath out of both nostrils and denies dysphagia. Patient does not think he had chicken pox as a child and has not had shingles vaccine. The only stressor he had last week was a mild cold that completely resolved just before onset of these new symptoms. Patient reports similar reaction ~10 years ago (that was bilateral instead of unilateral) induced by an allergy to Ibuprofen. Patient denies any exposure to Ibuprofen and has double-checked his home medications. Timing/Duration: 2-3 Days, Gone Now Severity: Moderate (ABDOUL GALLEGO STUDENT) Allergies and Home Medications Allergies Coded Allergies: ibuprofen (Verified Allergy, Unknown, 09/25/07) morphine (Verified Allergy, Unknown, has received Morphine multiple times in the past, 02/28/19) MIGRAINES Patient Home Medication List Home Medication List Reviewed: Yes (DAVE MARTIN MD) Aspirin (Aspirin EC) 81 Mg Tablet., 81 MG PO DAILY, (Reported) Entered as Reported by: ABDOUL WAGGONER on 09/02/16 0925 Carvedilol (Carvedilol) 3.125 Mg Tablet, (Reported) Entered as Reported by: TERESSA LUNA on 9/6/19 0447 Clopidogrel Bisulfate (Clopidogrel) 75 Mg Tablet, (Reported) Entered as Reported by: TERESSA LUNA on 04/01/19446 Furosemide (Furosemide) 40 Mg Tablet, (Reported) Entered as Reported by: TERESSA LUNA on 04/01/19446 Hydrocodone Bit/Acetaminophen (Lortab 5 Mg Tablet) 1 Each Tablet, (Reported) Entered as Reported by: TERESSA LUNA on 04/01/19446 Potassium Chloride (Potassium Chloride) 20 Meq Tab.er.prt, (Reported) Entered as Reported by: TERESSA LUNA on 04/01/19446 Valacyclovir HCl (Valacyclovir) 1,000 Mg Tablet, 1,000 MG PO TID Prescribed by: DAVE MARTIN on 08/21/21 1205 Review of Systems Review of Systems Constitutional: No chills, No diaphoresis, No fever EENTM: ear pain (right), blurred vision (right), tearing (right, not purulent ); No ear discharge, No hearing loss, No vision loss, No mouth pain, No mouth swelling, No throat pain, No throat swelling Respiratory: No cough, No phlegm, No short of breath, No stridor Cardiovascular: No chest pain, No edema, No palpitations Gastrointestinal: No abdominal pain, No constipation, No diarrhea, No nausea, No vomiting Genitourinary: No dysuria, No frequency, No hematuria Musculoskeletal: No joint pain, No muscle pain Skin: change in color; No pruritus; rash (right-sided facial/scalp rash) Psychiatric/Neurological: No Symptoms Reported Hematologic/Lymphatic: No Symptoms Reported Immunological/Allergic: no symptoms reported (MentorCloudAleksandraEndeca STUDENT) Past Lthscct-Kcdozx-Slrnnk Hx Patient Social History Tobacco Use?: No Alcohol Use?: No Pt feels they are or have been: No (Monetsu,Endeca STUDENT) Immunizations Up To Date Tetanus Booster (TDap): Less than 5yrs PED Vaccines UTD: No First/Initial COVID19 Vaccinat: JANUARY COVID19 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[employer] /[employer] (JOCELYNNOptimizelyABDOUL Masabi STUDENT) Seasonal Allergies Seasonal Allergies: No (JOCELYNNOptimizelyEndeca STUDENT) Past Medical History Surgeries: Yes Cardiac, CABG, Coronary Stent, Renal Respiratory: No Currently Using CPAP: No Currently Using BIPAP: No Cardiac: Yes Coronary Artery Disease, Heart Attack, High Cholesterol, Hypertension Neurological: No Reproductive Disorders: No Genitourinary: Yes Kidney Stones Gastrointestinal: Yes (BLEEDING ULCER) Gastroesophageal Reflux, Gastrointestinal Bleed, Ulcer Musculoskeletal: Yes Degenerate Disk Disease, Chronic Back Pain Endocrine: No HEENT: No Cancer: No Psychosocial: No Integumentary: No Blood Disorders: No (JOCELYNN7writeAleksandraABDOUL Masabi STUDENT) Family Medical History FH: CHF (congestive heart failure) 19 MOTHER No Pertinent Family Hx (JULIÁNABDOUL Masabi STUDENT) Physical Exam Vital Signs Vital Signs - First Documented 08/21/21 09:16 Temp 36.9 Pulse 93 Resp 18 B/P (MAP) 148/97 (114) Pulse Ox 98 O2 Delivery Room Air (DAVE MARTIN MD) Vital Signs Capillary Refill : (ABDOUL GALLEGO Masabi STUDENT) Height, Weight, BMI Height: 5'9.00" Weight: 245lbs. 0oz. [id number]; 39.00 BMI Method:Stated General Appearance: No Apparent Distress, Obese HEENT: PERRL/EOMI, TMs Normal (no vesicles seen in either ear canal), Pharynx Normal, Moist Mucous Membranes; No Pharyngeal Erythema, No Photophobia, No Tonsillar Exudate; Other (right upper eyelid edema, b/l arcus senilis, scab on right auricle (pt states has been there for years). No conjunctival injection b/l) Respiratory: Chest Non Tender, Lungs Clear, Normal Breath Sounds, No Accessory Muscle Use, No Respiratory Distress Cardiovascular: Regular Rate, Rhythm, No Edema, Normal Peripheral Pulses Gastrointestinal: Normal Bowel Sounds, Non Tender, Soft Back: Normal Inspection, No Vertebral Tenderness Extremity: Normal Capillary Refill, Normal Inspection, Non Tender, No Calf Tenderness, No Pedal Edema Neurologic/Psychiatric: Alert, Oriented x3, No Motor/Sensory Deficits, Normal M ood/Affect, warranty manager II-XII Norm as Tested; No EOM Palsy, No Facial Droop, No Sensory Deficit Skin: Warm/Dry, Other (Edema with erythematous and indurated rash without vesicles or papules extending across right maxilla toward lateral nose. Involves right eyelid, forehead, temporal scalp down through back of neck with patch of parietal sparing/blanching. Not confined entirely by dermatomal distribution. No ulcerations, abrasions or puncture wounds found on head.) Lymphatic: No Adenopathy (ABDOUL GALLEGO MED STUDENT) Focused Exam Lactate Level 08/21/21 10:25: Lactic Acid Level 1.10 (DAVE MARTIN MD) Lactic Acid Level Laboratory Tests Test 08/21/21 10:25 Lactic Acid Level 1.10 MMOL/L (0.50-2.00) (DAVE MARTIN MD) Procedures/Interventions Eye : Location: right eye Eye Irrigated w/ Saline (ccs): 20 Anesthesia (gtts): Tetracaine Progress/Procedure Conclusion slit Lamp exam (DAVE MARTIN MD) Progress/Results/Core Measures Suspected Sepsis SIRS Temperature: Pulse: 93 Respiratory Rate: 18 Laboratory Tests 08/21/21 10:25: White Blood Count 6.5 Blood Pressure 148 /97 Mean: 114 08/21/21 10:25: Lactic Acid Level 1.10 Laboratory Tests 08/21/21 10:25: Creatinine 1.66H, Platelet Count 163, Total Bilirubin 1.2H (ABDOUL GALLEGO MED STUDENT) Results/Orders Lab Results Laboratory Tests Test 08/21/21 10:25 Range/Units White Blood Count 6.5 4.3-11.0 10^3/uL Red Blood Count 4.70 4.30-5.52 10^6/uL Hemoglobin 14.1 13.3-17.7 g/dL Hematocrit 44 40-54 % Mean Corpuscular Volume 94 80-99 fL Mean Corpuscular Hemoglobin 30 25-34 pg Mean Corpuscular Hemoglobin Concent 32 32-36 g/dL Red Cell Distribution Width 13.5 10.0-14.5 % Platelet Count 163 130-400 10^3/uL Mean Platelet Volume 11.3 9.0-12.2 fL Immature Granulocyte % (Auto) 0 % Neutrophils (%) (Auto) 76 H 42-75 % Lymphocytes (%) (Auto) 14 12-44 % Monocytes (%) (Auto) 9 0-12 % Eosinophils (%) (Auto) 1 0-10 % Basophils (%) (Auto) 0 0-10 % Neutrophils # (Auto) 4.9 1.8-7.8 10^3/uL Lymphocytes # (Auto) 0.9 L 1.0-4.0 10^3/uL Monocytes # (Auto) 0.6 0.0-1.0 10^3/uL Eosinophils # (Auto) 0.0 0.0-0.3 10^3/uL Basophils # (Auto) 0.0 0.0-0.1 10^3/uL Immature Granulocyte # (Auto) 0.0 0.0-0.1 10^3/uL Sodium Level 138 135-145 MMOL/L Potassium Level 4.0 3.6-5.0 MMOL/L Chloride Level 105 98-107 MMOL/L Carbon Dioxide Level 24 21-32 MMOL/L Anion Gap 9 5-14 MMOL/L Blood Urea Nitrogen 13 7-18 MG/DL Creatinine 1.66 H 0.60-1.30 MG/DL Estimat Glomerular Filtration Rate 47 BUN/Creatinine Ratio 8 Glucose Level 103 70-105 MG/DL Lactic Acid Level 1.10 0.50-2.00 MMOL/L Calcium Level 9.0 8.5-10.1 MG/DL Corrected Calcium 9.2 8.5-10.1 MG/DL Total Bilirubin 1.2 H 0.1-1.0 MG/DL Aspartate Amino Transf (AST/SGOT) 22 5-34 U/L Alanine Aminotransferase (ALT/SGPT) 30 0-55 U/L Alkaline Phosphatase 62 40-136 U/L C-Reactive Protein High Sensitivity 10.16 H 0.00-0.50 MG/DL Total Protein 7.6 6.4-8.2 GM/DL Albumin 3.7 3.2-4.5 GM/DL (DAVE MARTIN MD) Micro Results Microbiology 08/21/21 Blood Culture - Preliminary, Resulted No growth (DAVE MARTIN MD) My Orders Orders - DAVE MARTIN MD Blood Culture (08/21/21 09:56) Cbc With Automated Diff (08/21/21 09:56) Comprehensive Metabolic Panel (08/21/21 09:56) Hs C Reactive Protein (08/21/21 09:56) Lactic Acid Analyzer (08/21/21 09:56) Tetracaine 0.5% Ophth Leatha Sdv (Tetracai (08/21/21 10:00) Fluorescein Strips (Deswd-I-Gvzhmy) (08/21/21 10:00) Balanced Salt Irrigation Soln (Bss Irrig (08/21/21 10:00) Fluorescein Strips (Imdka-Y-Erfyem) (08/21/21 11:11) Valacyclovir Tablet (Valtrex Tablet) (08/21/21 11:46) (DAVE MARTIN MD) Medications Given in ED (DAVE MARTIN MD) Vital Signs/I&O 08/21/21 08/21/21 09:16 12:20 Temp 36.9 Pulse 93 90 Resp 18 18 B/P (MAP) 148/97 (114) 137/82 Pulse Ox 98 98 O2 Delivery Room Air Room Air (DAVE MARTIN MD) Vital Signs/I&O Capillary Refill : (ABDOUL GALLEGO MED STUDENT) Blood Pressure Mean: 114 Progress Note : Time: 12:10 Progress Note 60-year-old male presents to the emergency room with chief complaint of rash to the right side of his face involving his upper and lower eyelid, onset Thursday. He denies any trauma. No fevers or chills. The rash feels like a "burn" in nature. It is a little painful. He states it started in the middle of his ear and then slowly spread since Thursday. No history of similar symptoms in the past. Is not a diabetic. Has not been using any topical creams on the rash. Does complain of some decreased visual acuity in the right eye. Visual acuity is 2400 in the right 20/40 together. He does not wear glasses or c ontacts. On physical examination the patient has diffuse uptake over the cornea without specific dendrites. He does have a little arcus senilis with more intense uptake noted there at the 6 to 9 o'clock position. No obvious corneal abrasions. Extraocular muscles are intact. Pupils are brisk. He has no eye pain. No palpable lymphadenopathy. The rash extends over the lids, down the right cheek across to the ear and up onto the scalp it does extend a little bit behind the right ear. There are no lesions inside the right ear canal or on the tympanic membrane. The rash does not have any pustules or vesicles. Notably he does have what appears to be cholesterol deposit lesions across the front of his face. No open wounds. Case is discussed with Dr. Wang who recommends that a evaluate the patient at the clinic at 1 PM. I am going to go ahead and start him on some valacyclovir 1 3 times a day for the next 10 days. I have given him primary care referral list. Labs have been reviewed, all reassuring. No concerns for sepsis. Normal blood sugar. I have reviewed the plan of care with the patient. He is comfortable with this. We will go over and be seen by Dr. Wang 1:00. All questions are sought and answered (DAVE MARTIN MD) Departure Impression Primary Impression: Herpes zoster ophthalmicus of right eye Disposition: HOME, SELF-CARE Condition: Stable Departure-Patient Inst. Decision time for Depature: 12:02 (DAVE MARTIN MD) Referrals: SHERYL WANG OD,LOCAL PHYSICIAN (PCP) Primary Care Physician Patient Instructions: LOCAL PHYSICIAN LIST, Shingles (DC) Add. Discharge Instructions: Take the valacyclovir 1000 mg 3 times a day for the next 10 days. You will need to go to the eye doctor to be seen at 1 PM today. Contact information is provided on this paperwork. If you develop a fever, drainage or crusting from the rash area you need to be seen again in the emergency department or by a primary care physician. [facility] or with a provider of your choice. Scripts Valacyclovir HCl (Valacyclovir) 1,000 Mg Tablet 1000 MG PO TID, #30 TAB Prov: DAVE MARTIN MD 08/21/21 Verification and Attestation of Medical Student E/M Service A medical student performed and documented this service in my presence. I reviewed and verified all information documented by the medical student and made modifications to such information, when appropriate. I personally performed the physical exam and medical decision making. Dave Martin, Aug 21, 2021,12:05 (DAVE MARTIN MD) Images Eye 1 - Dye uptake (fluorescein) Progress arcus senilus from 6-9 o'clock; diffuse uptake with a little more over the arcus (DAVE MARTIN MD) ABDOUL GALLEGO MED STUDENT Aug 21, 2021 10:09 DAVE MARTIN MD Aug 21, 2021 12:05
[2021-08-21 10:38] LABS: BASOPHILS % (AUTO) 0 % (0-10); EOSINOPHILS % (AUTO) 1 % (0-10); HEMATOCRIT 44 % (40-54); HEMOGLOBIN 14.1 g/dL (13.3-17.7); LYMPHOCYTES # (AUTO) 0.9 10^3/uL (1.0-4.0); LYMPHOCYTES % (AUTO) 14 % (12-44); MEAN CORPUSCULAR HEMOGLOBIN 30 pg (25-34); MEAN CORPUSCULAR HGB CONC 32 g/dL (32-36); MEAN CORPUSCULAR VOLUME 94 fL (80-99); MEAN PLATELET VOLUME 11.3 fL (9.0-12.2); MONOCYTES # (AUTO) 0.6 10^3/uL (0.0-1.0); MONOCYTES % (AUTO) 9 % (0-12); NEUTROPHILS # (AUTO) 4.9 10^3/uL (1.8-7.8); NEUTROPHILS % (AUTO) 76 % (42-75); PLATELET COUNT 163 10^3/uL (130-400); WHITE BLOOD COUNT 6.5 10^3/uL (4.3-11.0)
[2021-08-21 10:49] LABS: ALBUMIN 3.7 GM/DL (3.2-4.5)
[2021-08-21 10:52] LABS: TOTAL PROTEIN 7.6 GM/DL (6.4-8.2)
[2021-08-21 10:53] LABS: BILIRUBIN,TOTAL 1.2 MG/DL (0.1-1.0)
[2021-08-21 10:55] LABS: CREATININE SERUM 1.66 MG/DL (0.60-1.30)
[2021-08-21] MEDS ORDERED: FLUORESCEIN (FLUOR-I-STRIPS) 1 MG STRP ONE (11:11)
[2021-08-21] MEDS ORDERED: VALACYCLOVIR 500 MG TAB (VALTREX) PO STA (11:46)
[2021-08-21] MEDS ORDERED: VALA10007 PO (12:05)
[2021-08-21 12:20] VITALS: BP 137/82
== END 2021-08-21 12:23 | disposition home or self-care (01) ==
LOC: EDUNIT# 09:12 → ER 09:14
DX: B02.30 Zoster ocular disease, unspecified (principal); I25.2 Old myocardial infarction; I10 Essential (primary) hypertension; G89.29 Other chronic pain; M54.9 Dorsalgia, unspecified; E66.9 Obesity, unspecified; Z68.39 Body mass index [BMI] 39.0-39.9, adult; Z79.82 Long term (current) use of aspirin; Z79.01 Long term (current) use of anticoagulants; Z79.891 Long term (current) use of opiate analgesic
CPT/HCPCS: 36415; 80053; 83605; 85025; 86141; 87040

== ENCOUNTER → 2021-10-29 | Outpatient (CLI) | payer MEDICARE ==
[~2021-10-29] MED LIST changes: +VALA10007 PO
[2021-10-29 11:13] LABS: ALBUMIN 3.8 GM/DL (3.2-4.5); POTASSIUM 4.1 MMOL/L (3.6-5.0)
[2021-10-29 11:14] LABS: CALCIUM 9.1 MG/DL (8.5-10.1)
[2021-10-29 11:15] LABS: TOTAL PROTEIN 7.6 GM/DL (6.4-8.2)
[2021-10-29 11:17] LABS: BILIRUBIN,TOTAL 0.9 MG/DL (0.1-1.0)
[2021-10-29 11:19] LABS: CREATININE SERUM 1.56 MG/DL (0.60-1.30)
== END ==
LOC: LAB 10:37
PROVIDERS: ATTEND Internal Medicine Cardiovascular Disease
DX: E78.2 Mixed hyperlipidemia (principal)
CPT/HCPCS: 36415; 80053; 80061

== ENCOUNTER → 2022-07-08 | Outpatient (CLI) | payer MEDICARE | LOC: CARD 08:52 | PROVIDERS: ATTEND Internal Medicine Cardiovascular Disease | DX: I11.9 Hypertensive heart disease without heart failure (principal) | CPT/HCPCS: 93306 ==

== ENCOUNTER 2022-08-01 21:18 | Emergency (ER) | payer MEDICARE ==
[2022-08-01] MEDS ORDERED: ASPIRIN 81 MG CHEW (CHILDREN'S ASA) PO ONE (21:30)
[2022-08-01] MEDS ORDERED: fentaNYL INJ 100 MCG/2 ML AMP IVP ONE (21:30)
--- NOTE | 2022-08-01 21:30 | ED Chest Pain ---
General Chief Complaint: Chest Pain Stated Complaint: CHEST PAINS POSS HEART ATTACK Source: patient Exam Limitations: no limitations (CASSIE PHAM APRN) History of Present Illness Date Seen by Provider: Aug 01, 2022 Time Seen by Provider: 21:28 Initial Comments to ER with severe sudden onset sharp left-sided chest pain. This began in his left posterior thorax and moved to the front of the left chest. No fevers or chills. Taking a deep breath significantly worsens his pain. He is worried he is having a heart attack. He had a CABG done in [place] 3 years ago. He follows with Dr. Sanchez. History of coronary stents. Timing/Duration: 1 hour Severity/Quality: severe Radiation: no radiation Activities at Onset: none Prior CP/Workup: cardiac cath, heart attack (CASSIE PHAM APRN) Allergies and Home Medications Allergies Coded Allergies: ibuprofen (Verified Allergy, Unknown, 09/25/07) morphine (Verified Allergy, Unknown, has received Morphine multiple times in the past, 02/28/19) MIGRAINES Patient Home Medication List Home Medication List Reviewed: Yes (CASSIE PHAM APRN) Aspirin (Aspirin EC) 81 Mg Tablet., 81 MG PO DAILY, (Reported) Entered as Reported by: ABDOUL WAGGONER on 09/02/16 0925 Carvedilol (Carvedilol) 3.125 Mg Tablet, (Reported) Entered as Reported by: TERESSA LUNA on 04/01/19446 Clopidogrel Bisulfate (Clopidogrel) 75 Mg Tablet, (Reported) Entered as Reported by: TERESSA LUNA on 04/01/19446 Furosemide (Furosemide) 40 Mg Tablet, (Reported) Entered as Reported by: TERESSA LUNA on 04/01/19446 Hydrocodone Bit/Acetaminophen (Lortab 5 Mg Tablet) 1 Each Tablet, (Reported) Entered as Reported by: TERESSA LUNA on 04/01/19446 Potassium Chloride (Potassium Chloride) 20 Meq Tab.er.prt, (Reported) Entered as Reported by: TERESSA LUNA on 04/01/19446 Valacyclovir HCl (Valacyclovir) 1,000 Mg Tablet, 1,000 MG PO TID Prescribed by: DAVE MARTIN on 08/21/21 1205 Review of Systems Review of Systems Constitutional: see HPI EENTM: No Symptoms Reported Respiratory: No Symptoms Reported Cardiovascular: See HPI, Chest Pain Gastrointestinal: No Symptoms Reported Genitourinary: No Symptoms Reported Musculoskeletal: no symptoms reported Skin: no symptoms reported Psychiatric/Neurological: No Symptoms Reported Endocrine: No Symptoms Reported Hematologic/Lymphatic: No Symptoms Reported (CASSIE PHAM APRN) Past Lhuzuhz-Xhcwnk-Yserys Hx Immunizations Up To Date Tetanus Booster (TDap): Less than 5yrs PED Vaccines UTD: No First/Initial COVID19 Vaccinat: ANAT (CASSIE PHAM APRN) Seasonal Allergies Seasonal Allergies: No (CASSIE PHAM APRN) Past Medical History Surgeries: Yes Cardiac, CABG, Coronary Stent, Renal Respiratory: No Currently Using CPAP: No Currently Using BIPAP: No Cardiac: Yes Coronary Artery Disease, Heart Attack, High Cholesterol, Hypertension Neurological: No Reproductive Disorders: No Genitourinary: Yes Kidney Stones Gastrointestinal: Yes (BLEEDING ULCER) Gastroesophageal Reflux, Gastrointestinal Bleed, Ulcer Musculoskeletal: Yes Degenerate Disk Disease, Chronic Back Pain Endocrine: No HEENT: No Cancer: No Psychosocial: No Integumentary: No Blood Disorders: No (CASSIE PHAM APRN) Family Medical History FH: CHF (congestive heart failure) 19 MOTHER No Pertinent Family Hx (CASSIE PHAM APRN) Physical Exam Vital Signs Vital Signs - First Documented 08/01/22 21:18 Temp 36.6 Pulse 69 Resp 20 B/P (MAP) 185/107 (133) Pulse Ox 95 (JULIO CARLISLE MD) Vital Signs Capillary Refill : (CASSIE PHAM APRN) Height, Weight, BMI Height: 5'9.00" Weight: 245lbs. 0oz. [id number]; 39.00 BMI Method:Stated General Appearance: No Apparent Distress, WD/WN, Anxious, Other (Tearful, anxious appearing. SPO2 95% room air heart rate 69, hypertensive at 173/93. Chest wall is nontender to palpation. Lungs are clear.) Neck: Full Range of Motion, Normal Inspection Respiratory: No Accessory Muscle Use, No Respiratory Distress Cardiovascular: Regular Rate, Rhythm, Normal Peripheral Pulses Gastrointestinal: Normal Bowel Sounds, Non Tender, Soft Extremity: Normal Capillary Refill, Normal Inspection Neurologic/Psychiatric: Alert, Oriented x3 Skin: Normal Color, Warm/Dry (CASSIE PHAM APRN) Progress/Results/Core Measures Results/Orders Lab Results Laboratory Tests Test 08/01/22 21:30 08/01/22 22:28 08/01/22 22:30 Range/Units White Blood Count 5.8 4.3-11.0 10^3/uL Red Blood Count 4.56 4.30-5.52 10^6/uL Hemoglobin 13.3 13.3-17.7 g/dL Hematocrit 42 40-54 % Mean Corpuscular Volume 91 80-99 fL Mean Corpuscular Hemoglobin 29 25-34 pg Mean Corpuscular Hemoglobin Concent 32 32-36 g/dL Red Cell Distribution Width 14.1 10.0-14.5 % Platelet Count 177 130-400 10^3/uL Mean Platelet Volume 11.0 9.0-12.2 fL Immature Granulocyte % (Auto) 0 % Neutrophils (%) (Auto) 50 42-75 % Lymphocytes (%) (Auto) 39 12-44 % Monocytes (%) (Auto) 7 0-12 % Eosinophils (%) (Auto) 3 0-10 % Basophils (%) (Auto) 1 0-10 % Neutrophils # (Auto) 2.9 1.8-7.8 10^3/uL Lymphocytes # (Auto) 2.3 1.0-4.0 10^3/uL Monocytes # (Auto) 0.4 0.0-1.0 10^3/uL Eosinophils # (Auto) 0.2 0.0-0.3 10^3/uL Basophils # (Auto) 0.0 0.0-0.1 10^3/uL Immature Granulocyte # (Auto) 0.0 0.0-0.1 10^3/uL Prothrombin Time 12.9 12.2-14.7 SEC INR Comment 0.9 0.8-1.4 Activated Partial Thromboplast Time 28 24-35 SEC Sodium Level 142 135-145 MMOL/L Potassium Level 4.3 3.6-5.0 MMOL/L Chloride Level 109 H 98-107 MMOL/L Carbon Dioxide Level 22 21-32 MMOL/L Anion Gap 11 5-14 MMOL/L Blood Urea Nitrogen 13 7-18 MG/DL Creatinine 1.92 H 0.60-1.30 MG/DL Estimat Glomerular Filtration Rate 40 BUN/Creatinine Ratio 7 Glucose Level 124 H 70-105 MG/DL Calcium Level 8.8 8.5-10.1 MG/DL Corrected Calcium 9.0 8.5-10.1 MG/DL Magnesium Level 1.9 1.6-2.4 MG/DL Total Bilirubin 0.7 0.1-1.0 MG/DL Aspartate Amino Transf (AST/SGOT) 31 5-34 U/L Alanine Aminotransferase (ALT/SGPT) 33 0-55 U/L Alkaline Phosphatase 68 40-136 U/L Myoglobin 108.5 H 10.0-92.0 NG/ML Troponin I < 0.028 < 0.028 <0.028 NG/ML Total Protein 7.6 6.4-8.2 GM/DL Albumin 3.7 3.2-4.5 GM/DL Urine Opiates Screen NEGATIVE NEGATIVE Urine Oxycodone Screen NEGATIVE NEGATIVE Urine Methadone Screen NEGATIVE NEGATIVE Urine Propoxyphene Screen NEGATIVE NEGATIVE Urine Barbiturates Screen NEGATIVE NEGATIVE Ur Tricyclic Antidepressants Screen NEGATIVE NEGATIVE Urine Phencyclidine Screen NEGATIVE NEGATIVE Urine Amphetamines Screen NEGATIVE NEGATIVE Urine Methamphetamines Screen NEGATIVE NEGATIVE Urine Benzodiazepines Screen NEGATIVE NEGATIVE Urine Cocaine Screen NEGATIVE NEGATIVE Urine Cannabinoids Screen NEGATIVE NEGATIVE (JULIO CARLISLE MD) My Orders Orders - JULIO CARLISLE MD Ekg Tracing (08/01/22 21:21) (JULIO CARLISLE MD) Medications Given in ED Current Medications Medications Dose Ordered Sig/Letty Route Start Time Stop Time Status Last Admin Dose Admin Aspirin 324 mg ONCE ONCE PO 08/01/22 21:30 08/01/22 21:31 DC 08/01/22 21:35 324 MG Clonidine HCl 0.1 mg ONCE ONCE PO 08/01/22 22:15 08/01/22 22:16 DC 08/01/22 22:06 0.1 MG Fentanyl Citrate 50 mcg ONCE ONCE IVP 08/01/22 21:30 08/01/22 21:31 DC 08/01/22 21:35 50 MCG (JULIO CARLISLE MD) Vital Signs/I&O 08/01/22 21:18 Temp 36.6 Pulse 69 Resp 20 B/P (MAP) 185/107 (133) Pulse Ox 95 (JULIO CARLISLE MD) Progress Progress Note : Progress Note Received the patient in signout pending a second troponin. Pain is significantly improved and was essentially gone at that time. Initial troponin negative and undetectable, second is undetectable as well. On reassessment patient well-appearing and in no distress. Sleeping comfortably (JULIO CARLISLE MD) Initial ECG Impression Date: Aug 01, 2022 Initial ECG Impression Time: 21:24 Initial ECG Rate: 67 Initial ECG Rhythm: Normal Sinus Comment Narrow QRS, normal axis, T wave inversions in the high lateral leads and precordial leads which appears similar to prior EKG, no STEMI EKG : EKG Time: 22:11 Rate: 62 Rhythm: Normal Sinus Comment No changes from previous EKG (JULIO CARLISLE MD) Diagnostic Imaging Diagonstic Imaging: Xray (chest) Comments [facility], [place] NAME: DANIEL MEEK [facility] REC#: [id number] PT STATUS: REG ER : 1960 PHYSICIAN: CASSIE PHAM APRN ADMIT DATE: 08/01/22/ER Signed Date of Exam:08/01/22 CHEST 1 VIEW, AP/PA ONLY EXAMINATION: Chest radiograph, portable AP view. DATE: 08/01/2022 9:46 PM INDICATION: 61-year-old male, chest pain. COMPARISON: April 01, 2019. FINDINGS: There are median sternotomy wires. There is additional hardware noted. Heart size and mediastinal contours appear unchanged. There is no identified pneumothorax. There is blunting of the left lateral costophrenic angle. Lung volumes are low. IMPRESSION: 1. Low lung volumes. 2. Blunting of the left lateral costophrenic angle which could relate to soft tissue overlap although small effusion, atelectasis and/or infiltrate is also considered. Dictated by: Dictated on workstation # [id number] Dict: 08/01/222151 Trans: 08/01/222155 PJE [id number] Interpreted by: KELLY ADHIKARI MD Electronically signed by: KELLY ADHIKARI MD 08/01/222155 (JULIO CARLISLE MD) Departure Communication (Admissions) Family Conversation 9-initial EKG showed sinus rhythm with no ST segment elevation. He was given aspirin and fentanyl. He stated that temporarily improved his pain but it came back. I repeated an EKG which shows no change from the initial EKG. Still awaiting troponin results. 2329-now he is sitting up on the edge of the bed states his pain has gone down to 2 out of 10. I discussed with him that we will get a repeat troponin and if still negative discharged home. He is agreeable with this plan. Son at the bedside. NAME: DANIEL MEEK [facility] REC#: [id number] PT STATUS: REG ER : 1960 PHYSICIAN: CASSIE PHAM APRN ADMIT DATE: 08/01/22/ER Draft Date of Exam:08/01/22 CHEST 1 VIEW, AP/PA ONLY EXAMINATION: Chest radiograph, portable AP view. DATE: 08/01/2022 9:46 PM INDICATION: 61-year-old male, chest pain. COMPARISON: April 01, 2019. FINDINGS: There are median sternotomy wires. There is additional hardware noted. Heart size and mediastinal contours appear unchanged. There is no identified pneumothorax. There is blunting of the left lateral costophrenic angle. Lung volumes are low. IMPRESSION: 1. Low lung volumes. 2. Blunting of the left lateral costophrenic angle which could relate to soft tissue overlap although small effusion, atelectasis and/or infiltrate is also considered. Dictated on workstation # [id number] Dict: 08/01/222151 Trans: 08/01/222154 [facility] [id number] Interpreted by: KELLY ADHIKARI MD Electronically signed by: (CASSIE PHAM APRN) Impression Primary Impression: Pleuritic chest pain Disposition: HOME, SELF-CARE Condition: Stable Departure-Patient Inst. Decision time for Depature: 23:25 (JULIO CARLISLE MD) Referrals: NO,LOCAL PHYSICIAN (PCP) Primary Care Physician JESSICA SANCHEZ MD (Family) Primary Care Physician Patient Instructions: Chest Pain, Adult ED Add. 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 If symptoms worsen or you have any concerns you could always come back to the ER. It does not appear like at this time you are having a heart attack, but things can always change from moment to moment. Work/School Note: Work Release Form Date Seen in the Emergency Department: Aug 01, 2022 Return to Work: Aug 03, 2022 Restrictions: No Restrictions CASSIE PHAM APRN Aug 01, 2022 21:30 JULIO CARLISLE MD Aug 01, 2022 23:19
[2022-08-01 21:37] LABS: BASOPHILS % (AUTO) 1 % (0-10); EOSINOPHILS # (AUTO) 0.2 10^3/uL (0.0-0.3); EOSINOPHILS % (AUTO) 3 % (0-10); HEMATOCRIT 42 % (40-54); HEMOGLOBIN 13.3 g/dL (13.3-17.7); LYMPHOCYTES # (AUTO) 2.3 10^3/uL (1.0-4.0); LYMPHOCYTES % (AUTO) 39 % (12-44); MEAN CORPUSCULAR HEMOGLOBIN 29 pg (25-34); MEAN CORPUSCULAR HGB CONC 32 g/dL (32-36); MEAN CORPUSCULAR VOLUME 91 fL (80-99); MONOCYTES # (AUTO) 0.4 10^3/uL (0.0-1.0); MONOCYTES % (AUTO) 7 % (0-12); NEUTROPHILS # (AUTO) 2.9 10^3/uL (1.8-7.8); NEUTROPHILS % (AUTO) 50 % (42-75); PLATELET COUNT 177 10^3/uL (130-400); WHITE BLOOD COUNT 5.8 10^3/uL (4.3-11.0)
[2022-08-01 21:50] LABS: ALBUMIN 3.7 GM/DL (3.2-4.5); POTASSIUM 4.3 MMOL/L (3.6-5.0)
[2022-08-01 21:51] LABS: CALCIUM 8.8 MG/DL (8.5-10.1)
[2022-08-01 21:52] LABS: TOTAL PROTEIN 7.6 GM/DL (6.4-8.2)
[2022-08-01 21:53] LABS: INR 0.9 (0.8-1.4); PROTHROMBIN TIME PATIENT 12.9 SEC (12.2-14.7)
--- NOTE | 2022-08-01 21:55 | Diagnostic Imaging Report ---
EXAMINATION: Chest radiograph, portable AP view. DATE: 08/01/2022 9:46 PM INDICATION: 61-year-old male, chest pain. COMPARISON: April 01, 2019. FINDINGS: There are median sternotomy wires. There is additional hardware noted. Heart size and mediastinal contours appear unchanged. There is no identified pneumothorax. There is blunting of the left lateral costophrenic angle. Lung volumes are low. IMPRESSION: 1. Low lung volumes. 2. Blunting of the left lateral costophrenic angle which could relate to soft tissue overlap although small effusion, atelectasis and/or infiltrate is also considered. Dictated by: Dictated on workstation # [id number]
[2022-08-01 21:56] LABS: CREATININE SERUM 1.92 MG/DL (0.60-1.30)
[2022-08-01 21:58] LABS: MAGNESIUM 1.9 MG/DL (1.6-2.4)
[2022-08-01] MEDS ORDERED: cloNIDine 0.1 MG (CATAPRES) TAB PO ONE (22:15)
[2022-08-01] MEDS ORDERED: NITROGLYCERIN 0.4 MG SL TABS BTL 25'S SL PRN (22:30)
[2022-08-01 22:35] LABS: BILIRUBIN,TOTAL 0.7 MG/DL (0.1-1.0)
[2022-08-01 22:55] LABS: AMPHETAMINE SCREEN, URINE NEGATIVE (NEGATIVE); BARBITURATE SCREEN URINE NEGATIVE (NEGATIVE); BENZODIAZEPINES SCREEN URINE NEGATIVE (NEGATIVE); CANNABINOID SCREEN, URINE NEGATIVE (NEGATIVE); COCAINE SCREEN URINE NEGATIVE (NEGATIVE); METHADONE STAT NEGATIVE (NEGATIVE); OPIATE SCREEN URINE NEGATIVE (NEGATIVE); OXYCODONE STAT NEGATIVE (NEGATIVE); PROPOXYPHENE STAT NEGATIVE (NEGATIVE); TRICYCLIC ANTIDEPRESSANTS SCRE NEGATIVE (NEGATIVE)
[2022-08-01 23:29] VITALS: BP 137/89
== END 2022-08-01 23:28 | disposition home or self-care (01) ==
LOC: EDUNIT# 21:18 → ER 21:20
DX: R07.81 Pleurodynia (principal); Z95.5 Presence of coronary angioplasty implant and graft; Z28.310 Unvaccinated for COVID-19
CPT/HCPCS: 36415; 71045; 80053; 80306; 83735; 83874; 84484; 85027; 85610; 85730; 93005; 93041

== ENCOUNTER → 2023-06-03 | Outpatient (CLI) | payer MEDICARE ==
[2023-06-03 07:47] LABS: CALCIUM 9.2 MG/DL (8.5-10.1); CREATININE SERUM 1.82 MG/DL (0.60-1.30); TOTAL PROTEIN 7.8 GM/DL (6.4-8.2)
== END ==
LOC: LAB 07:02
PROVIDERS: ATTEND Internal Medicine Cardiovascular Disease
DX: I25.10 Atherosclerotic heart disease of native coronary artery without angina pectoris (principal); I10 Essential (primary) hypertension; E78.2 Mixed hyperlipidemia; R07.9 Chest pain, unspecified; I65.23 Occlusion and stenosis of bilateral carotid arteries; E78.5 Hyperlipidemia, unspecified
CPT/HCPCS: 36415; 80053; 80061

== ENCOUNTER → 2023-06-08 | Outpatient (CLI) | payer MEDICARE ==
[~2023-06-08] MED LIST changes: +REGADENOSON 0.4 MG/5 ML SYR IV ONE
[2023-06-08] MEDS: CATHETER FLUSH 10 ML SYR IVP PRN (07:08)
[2023-06-08] MEDS: REGADENOSON 0.4 MG/5 ML SYR IV ONE (09:10)
[2023-06-08 09:11] VITALS: BP 187/114
--- NOTE | 2023-06-08 11:41 | Cardiology Stress Test Report ---
Stress Test Report Date of Procedure/Referring: Date of Procedure: Jun 08, 2023 PCP No,Local Physician Admitting Physician Admitting Physician: Attending Physician: Jessica Sanchez MD Baseline Heart Rate: 48 Baseline Blood Pressure: Blood Pressure Systolic: 187 Blood Pressure Diastolic: 114 Baseline Vitals Vital Signs Date Time Temp Pulse Resp B/P (MAP) Pulse Ox O2 Delivery O2 Flow Rate FiO2 06/08/23 09:11 48 187/114 (138) Baseline EKG: Baseline EKG: NSR Summary After explaining the procedure to the patient, he signed a consent and then brought to the stress nuclear laboratory. Patient received 0.4 mg Lexiscan for stress test, ECG, heart rate and blood pressure were monitored continuously. Resting and stress dose of radio tracer were injected, imaging was acquired and reviewed in short axis, horizontal long axis and vertical long axis views. TID: 1.19 SSS: 12 SDS: 2 EF: 39 Patient tolerated Lexiscan well Fixed defect involving the whole inferior wall inferoapex apex and anterior apex. Normal left ventricular size with hypokinesia at the inferior wall and apex, ejection fraction 39% JESSICA SANCHEZ MD Jun 08, 2023 11:41
== END ==
LOC: CARD 06:52
PROVIDERS: ATTEND Internal Medicine Cardiovascular Disease
DX: R07.9 Chest pain, unspecified (principal)
CPT/HCPCS: 78452; 93017; A9502

== ENCOUNTER 2023-06-24 05:29 | Outpatient (CLI) | payer MEDICARE ==
[~2023-06-24] VITALS: Ht 175.3 cm; Wt 135.6 kg
[~2023-06-24 05:29] MED LIST changes: -REGADENOSON 0.4 MG/5 ML SYR IV ONE
[2023-06-24] MEDS ORDERED: AMLO-251 PO (09:36)
[2023-06-24] MEDS ORDERED: ROSU20TA73 PO (09:36)
[2023-06-24] MEDS ORDERED: CLN.1T PO (09:36)
[2023-06-24] MEDS ORDERED: PANT40TA52 PO (09:36)
[2023-06-26] MEDS ORDERED: ACHD5005 PO (10:17)
== END 2023-06-24 09:44 | disposition home or self-care (01) ==
LOC: PREOP 05:29
PROVIDERS: ATTEND Surgery
DX: Z01.818 Encounter for other preprocedural examination (principal)

== ENCOUNTER 2023-06-26 07:43 | Day surgery (SDC) | payer MEDICARE ==
[2023-06-26] VITALS (7 sets, daily range): BP systolic 104–137; BP diastolic 68–86
[~2023-06-26] VITALS: Ht 175.5 cm; Wt 135.6 kg
[~2023-06-26 07:43] MED LIST changes: +AMLO-251 PO; +CLN.1T PO; +ROSU20TA73 PO
[2023-06-26] MEDS ORDERED: ceFAZolin INJECTION 3,000 MG in NS (IVPB) 100 ML 100 ML IV ONE (08:30)
[2023-06-26] MEDS ORDERED: LACTATED RINGERS 1,000 ML 1,000 ML IV PRN (08:30)
[2023-06-26] MEDS ORDERED: LIDOCAINE 2% w/EPI 1:100,000 20 ML VIAL ONE (09:12)
--- NOTE | 2023-06-26 09:19 | Progress Note-Pre Operative ---
Pre-Operative Progress Note Date of Available H&P: Jun 23, 2023 Date H&P Reviewed: Jun 26, 2023 Time H&P Reviewed: 09:18 History & Physical: H&P Reviewed, Patient Examed, No changes noted Pre-Operative Diagnosis: Left cheek mass, site marked ROXANNA GALLOWAY DO Jun 26, 2023 09:19
[2023-06-26] MEDS ORDERED: LIDOCAINE 2% w/EPI 1:100,000 20 ML VIAL INJ ONE (09:25)
[2023-06-26] MEDS ORDERED: MIDAZOLAM INJ 2 MG/2 ML VIAL ONE (09:28)
[2023-06-26] MEDS ORDERED: KETAMINE 50 MG/5 ML SYRINGE ONE (09:32)
--- NOTE | 2023-06-26 10:16 | Progress Note-Post Operative ---
Post-Operative Progess Note Surgeon (s)/Milk Pasteurizer (s) Surgeon ROXANNA GALLOWAY DO Milk Pasteurizer: ARMANDO Santos Pre-Operative Diagnosis Left cheek mass, site marked Post-Operative Diagnosis Same pending path Procedure & Operative Findings Date of Procedure 06/26/23 Procedure Performed/Findings Excision of left cheek mass, down to and including small portion of fascia Anesthesia Type IV sedation by Anesthesiologist Estimated Blood Loss Estimated blood loss (mL): scant Specimens/Packing Specimens Removed left cheek mass with skin, 1 x 3.1cm ROXANNA GALLOWAY DO Jun 26, 2023 10:16
[2023-06-26] MEDS ORDERED: ACHD5005 PO (10:17)
--- NOTE | 2023-06-26 10:19 | Discharge Inst-Surgical ---
Discharge Inst-Surgical Depart Medication/Instructions New, Converted or Re-Newed RX: Transmitted to Pharmacy Patient Instructions Follow up Appt: Make appointment for 1 week. [phone] Instructions: No lifting greater than 20 pounds. No strenuous activity. May shower in 24 hours, no tub bath or soaking. Use incentive spirometer at home as directed. No Smoking Skin/Wound Care: May remove bandages in am. You need to leave the Dermabond on incision it will fall off on it's own. Symptoms to Report: Appetite Changes, Extremity Discoloration, Numbness/Tingling, Swelling Increased, Bleeding Excessive, Eyesight Changes, Pain Increased, Urine Color Change, Constipation(Persistent), Fever over 101 degree F, Pain/Pressure in chest, Urinating Difficulty, Cough Up/Vomit Blood, Heart Beat Irreg/Pounding, Pain/Pressure in jaw, Cramps in feet or legs, Lightheadedness, Pain/Pressure in shoulder, Diarrhea(Persistent), Memory Changes Suddenly, Questions/Concerns, Weight gain consecutive days, Dizziness/Fainting, Nausea/Vomiting, Shortness of Breath, Weight gain over 2 pounds If questions or concerns contact your physician Or seek help at emergency department. Activity Activity as Tolerated: Yes Activity Instructions: Avoid Stress to Incision Driving Instructions: No Driving/Refer to Dr. Prince Discharge Diet: No Restrictions Diet After 24 Hours: Clear Liquid if Nauseous If Any Problems/Questions/Issu: Contact Your Physician, Go to Emergency Room Skin/Wound Care Infection Signs and Symptoms: Increased Redness, Foul Odor of Wound, Increased Drainage, Skin Itchy or Has a Rash, Increased Swelling, Temperature Above 101 F Bathing Instructions: Shower Stitches/Spring/Dermabond Dis: ROXANNA Harley DO Jun 26, 2023 10:19
--- NOTE | 2023-06-26 10:30 | Anesthesia-General Post-Op ---
MAC Patient Condition Mental Status/LOC: Same as Preop Cardiovascular: Satisfactory Nausea/Vomiting: Absent Respiratory: Satisfactory Pain: Controlled Complications: Absent Post Op Complications Complications None Follow Up Care/Instructions Patient Instructions None needed. Anesthesiology Discharge Order Discharge Order Patient is awake in PACU and doing well, no complaints, stable vital signs, no apparent adverse anesthesia problems. No complications reported per nursing. JULIO PHILIP DO Jun 26, 2023 10:30
--- NOTE | 2023-06-26 17:28 | OPERATIVE REPORT ---
DATE OF SERVICE: 06/26/2023 PREOPERATIVE DIAGNOSIS: Left cheek mass. POSTOPERATIVE DIAGNOSIS: Left cheek mass, pending pathology. PROCEDURE: Excision of left cheek mass 1 x 3.1 cm excision down to and including a small portion of the fascia. SURGEON: Dr. Cramer. TRANSFER STATION OPERATOR: GRECIA Santos. ANESTHESIA: IV sedation by the anesthesiologist. SPECIMENS: Left cheek mass with portion of skin measuring 1 x 3.1 cm. BLOOD LOSS: Scant. FLUIDS: Per anesthesia. POSTOPERATIVE CONDITION: Stable. INDICATIONS FOR PROCEDURE: The patient is a 62-year-old male who has a mass on his left cheek. It has grown. It is starting to bother him. He wants to get it removed. He refused to do this in the office. He did not want any needles in his eyes and could not take the pain. FINDINGS: The patient had a left cheek mass. It actually went all the way down to and had to remove a portion of the fascia, could see the muscle right underneath after I removed this. DESCRIPTION OF PROCEDURE: After informed consent was obtained, the patient was brought to the operating room and placed table in supine position. He was sterilely prepped and draped in normal fashion. I first lena an elliptical incision around the left cheek mass. It was just lateral to the eye. I did a vertical incision, infiltrated with local approximately 3 mL and then made an incision with #15 blade, carried down through the skin into subcutaneous tissue, then deepened down to subcutaneous tissue with a needlepoint cautery, starting from above and then going inferiorly as well as going inferiorly, actually got into the mass, a little bit of whitish material came out. So, I had to go a little bit deeper to remove the mass completely and when by doing this, I did get a little bit of the fascia over the muscle, did not damage the muscle at all and then continued down and removed this inferiorly as well, removing it completely en bloc, passed off the table. I then copiously irrigated with normal saline. Hemostasis obtained using Bovie electrocautery. I elected to close this incision with three 3 interrupted 4-0 undyed Monocryl subcuticular sutures. Area was then cleaned and dried. Dermabond placed as well as a dressing. The patient tolerated the procedure. Sponge and needle count correct at the end of the case. Job ID: [id number] DocumentID: [id number] Dictated Date: 06/26/2023 10:23:26 Service Observer Chief Date: 06/26/2023 17:25:00 Dictated By: ROXANNA CRAMER DO
== END 2023-06-26 11:40 | disposition home or self-care (01) ==
LOC: SDC 07:43
PROVIDERS: ATTEND Surgery
DX: L72.0 Epidermal cyst (principal); E66.01 Morbid (severe) obesity due to excess calories; F17.220 Nicotine dependence, chewing tobacco, uncomplicated; Z68.41 Body mass index [BMI] 40.0-44.9, adult
CPT/HCPCS: 87081